=== PATIENT | female | born 1995 | race American Indian/Alaskan Native ===

== ENCOUNTER 2016-05-31 10:03 | Outpatient (CLI) | payer MEDICAID ==
[2016-05-31] MEDS ORDERED: LACTATED RINGERS 500 ML IV ONE (10:10)
[2016-05-31 10:33] VITALS: BP 107/56
[2016-05-31 11:34] LABS: Bacteria,Urine 4+ /HPF (Negative); Bilirubin,Urine NEG (Negative); Blood,Urine SM (Negative); Ketones,Urine TR mg/dL (Negative); Leukocyte Esterase,Urine LG (Negative); Mucus,Urine FEW /HPF; Nitrite,Urine POS (Negative)
[2016-05-31] MEDS ORDERED: ceFAZolin 2 GM in NACL 0.9% 100 ML IV ONE (11:44)
[2016-05-31] MEDS ORDERED: ZOFRAN IV ONE (11:45)
[2016-05-31] MEDS ORDERED: LACTATED RINGERS 1,000 ML IV SCH (12:00)
[2016-05-31 12:36] LABS: Hematocrit 27.7 % (30.3-42.9); Hemoglobin 9.2 gm/dl (10.1-14.3); Mean Corpuscular HGB Conc 33 % (30-34); Mean Corpuscular Volume 76 fl (79-97); Platelet Count 226 K/mm3 (140-440); Red Blood Count 3.62 M/mm3 (3.65-5.03); Red Cell Distribution Width 15.2 % (13.2-15.2)
[2016-05-31 12:42] LABS: Mean Corpuscular Hemoglobin 26 pg (28-32); White Blood Count 20.5 K/mm3 (4.5-11.0)
[2016-05-31 12:48] LABS: Anion Gap 20 mmol/L; BUN/Creatinine Ratio 8.57; Blood Urea Nitrogen 6 mg/dL (7-17); Calcium 8.5 mg/dL (8.4-10.2); Carbon Dioxide 19 mmol/L (22-30); Chloride 101.9 mmol/L (98-107); Glucose 82 mg/dL (65-100); Potassium 3.8 mmol/L (3.6-5.0); Sodium 137 mmol/L (137-145)
[2016-05-31 13:18] LABS: Basophils % (Manual) 0 % (0.0-1.8); Blastocytes % (Manual) 0 %; Eosinophils % (Manual) 0 % (0.0-4.3)
[2016-05-31 13:19] LABS: Hypochromasia Rare; Tear Drop Cells Few
[2016-05-31 13:20] LABS: Diff Status Complete
== END 2016-05-31 15:25 | disposition home or self-care (01) ==
LOC: TRG 10:03
PROVIDERS: ATTEND Obstetrics & Gynecology
DX: O77.9 Labor and delivery complicated by fetal stress, unspecified (principal); O47.03 False labor before 37 completed weeks of gestation, third trimester; Z3A.32 32 weeks gestation of pregnancy
CPT/HCPCS: 36415; 59025; 80048; 81001; 85007; 85025; 87086; 96360; 96361; 96365; J0690; J2405; J7120; 87076; 87186

== ENCOUNTER 2016-07-28 02:40 | Inpatient (IN) | payer MEDICAID ==
[2016-07-28] MEDS ORDERED: POLYCILLIN/NS 2 GM/100 ML 2 GM/100 ML BAG IV ONE (03:21)
[2016-07-28] MEDS: LACTATED RINGERS 1,000 ML IV SCH ×3 (03:49→10:26)
--- NOTE | 2016-07-28 03:54 | History and Physical Report ---
History of Present Illness Date of examination: 07/28/16 (pt presents to Triage with [facility]OM) Chief complaint: "my water broke" History of present illness: EDC Confirmation: 07/30/2016 Gestational Age: 8 weeks Past History : 2 Living Children: 0 Elect. Ab: 1 # 1 Delivery date: 04/27/2015 Delivery type: EAB Past Medical History: Negative Past Medical History Past Surgical History: negative Past Medical History Anesthesia Complications: negative Anemia: negative Autoimmune Disorder: negative Bleeding Disorder: negative Blood Transfusions: negative Breast Disease: negative Diabetes: negative Heart Disease: negative Hypertension: negative Hepatitis/Liver Disease: negative Kidney Disease/UTI: negative Neurologic/Epilepsy/Migraines: negative Phlebitis/Varicosities: negative Psychiatric: negative Pulmonary Disease/Asthma: negative Thyroid Disease: negative Hospitalizations: negative Surgery (Non-machine cell tuber): negative Infection History Hx of STD: none HIV Risk Eval: low risk Hepatitis B Risk Eval: low risk Personal hx. of genital herpes: no Partner hx. of genital herpes: no Varicella/Chicken Pox Status: Immunized TB Risk: no Genetic History Congenital Heart Defect: Mom: no Dad: no Sumeet Disease: Mom: no Dad: no Thalassemia Mom: no Dad: no Neural Tube Defect Mom: no Dad: no Down's Syndrome Mom: no Dad: no Pedro-Sachs Mom: no Dad: no Sickle Cell Disease/Trait Mom: no Dad: no Hemophilia Mom: no Dad: no Muscular Dystrophy Mom: no Dad: no Cystic Fibrosis Mom: no Dad: no [place] Chorea Mom: no Dad: no Mental Retardation Mom: no Dad: no Fragile X Mom: no Dad: no Other Genetic/Chromosomal Disorder Mom: no Dad: no Child w/other defect Mom: no Dad: no Enviromental Exposures Xray Exposure: no Medication, drug, or alcohol use since LMP: no Chemical/Other Exposure: no Exposure to Cat Liter: no Hx of Parvovirus (Fifth Disease): no Active Medications (reviewed today): None Current Allergies (reviewed today): No known allergies Laboratory Results Routine Urinalysis Leukocytes: negative Nitrite: negative Urobilinogen: negative Protein: negative Blood: negative Ketone: negative Bilirubin: negative Glucose: negative Urine HCG: positive Review of Systems General Denies fever, chills, sweats, anorexia, fatigue, weakness, malaise, weight loss and sleep disorder. Denies nausea, vomiting, headache, swelling of legs, abdominal pain, vaginal discharge, vaginal bleeding and contractions. Denies vaginal discharge, incontinence, dysuria, hematuria, urinary frequency, amenorrhea, menorrhagia, abnormal vaginal bleeding, pelvic pain, genital sores, decreased libido, painful periods, painful sex, urinary urgency, hot flashes, vaginal dryness, vaginal itching and vaginal odor. CV Denies chest pains, palpitations, syncope, dyspnea on exertion, orthopnea, PND and peripheral edema. Resp Denies cough, dyspnea at rest, excessive sputum, hemoptysis, wheezing and pleurisy. GI Denies nausea, vomiting, diarrhea, constipation, change in bowel habits, abdominal pain, melena, hematochezia, jaundice, gas/bloating, indigestion/ heartburn, dysphagia and odynophagia. Endo Denies cold intolerance, heat intolerance, polydipsia, polyphagia, polyuria and unusual weight change. Breast Denies left breast lump, right breast lump, nipple discharge, bloody discharge from nipple, breast pain, abnormal mammogram and breast enlargement. MS Denies back pain, joint pain, joint swelling, muscle cramps, muscle weakness, stiffness, arthritis, sciatica, restless legs, leg pain at night and leg pain with exertion. Derm Denies rash, itching, dryness and suspicious lesions. Neuro Denies paralysis, paresthesias, headache, seizures, tremors, vertigo, transient blindness, frequent falls, frequent headaches and difficulty walking. Psych Denies depression, anxiety, irritability and mood swings. Eyes Denies blurring, diplopia, irritation, discharge, vision loss, eye pain and photophobia. ENT Denies earache, ear discharge, tinnitus, decreased hearing, nasal congestion, nosebleeds, sore throat and hoarseness. Allergy Denies urticaria, allergic rash, hay fever and recurrent infections. Heme Denies abnormal bruising, bleeding and enlarged lymph nodes. PHYSICAL EXAM HEENT: PERRLA, normal conjunctiva, external nose and nasal mucosa normal, oropharynx clear Neck/Thyroid: supple, thyroid normal Skin no significant abnormal lesions or rashes Chest: respiratory effort normal, clear to auscultation Breasts: normal without skin changes or masses CV: regular, normal S1-S2, no murmur, no rub, no gallop Abdomen: normal bowel sounds, soft, nontender, no HSM Musculoskeletal: grossly normal ROM in joints, no joint tenderness or muscle weakness Neuro: grossly normal DTRs, sensation, strength, cranial nerves Extremities: no clubbing, cyanosis, or edema PRODUCTION CONTROL ANALYST Exams Vulva/Vagina: No lesions, normal BUS, normal rugae Cervix: No lesions; no cervical motion tenderness Uterus: normal size and position, midline, mobile, not 10 wk (dates), barely enlarged Adnexae: no masses or tenderness Rectovaginal: no masses or tenderness Past History - Obstetrical History Expected Date of Delivery: 07/30/16 Actual Gestation: 39 Week(s) 5 Day(s) : 2 Para: 0 Induced : 1 Number of Living Children: 0 Medications and Allergies Allergies Allergy/AdvReac Type Severity Reaction Status Date / Time No Known Allergies Allergy Verified 05/31/16 10:13 Home Medications Medication Instructions Recorded Confirmed Last Taken Type Caplet 1 tab PO DAILY 01/20/16 01/20/16 Unknown History Active Meds: Active Medications Ampicillin Sodium (Polycillin/Ns 2 Gm/100 Ml) 2 gm in 100 mls @ 100 mls/hr IV ONCE ONE PRN Reason: Protocol Stop: 07/28/16 04:20 Last Admin: 07/28/16 03:49 Dose: 100 mls/hr Lactated Ringer's (Lactated Ringers) 1,000 mls @ 125 mls/hr IV DIRECT MAYRA Last Admin: 07/28/16 03:49 Dose: 125 mls/hr - Vital Signs Vital signs: Vital Signs Pulse Pulse Ox 87 97 07/28/16 02:56 07/28/16 02:56 Temp Pulse Resp BP Pulse Ox 98.3 F 85 18 128/82 95 07/28/16 02:59 07/28/16 03:47 07/28/16 02:59 07/28/16 02:59 07/28/16 03:47 - Physical Exam Breasts: Positive: deferred Cardiovascular: Regular rate, Normal S1, Normal S2 Lungs: Positive: Normal air movement Abdomen: Positive: normal appearance, soft, normal bowel sounds. Negative: distention, tenderness Genitourinary (Female): Positive: normal external genitalia Vulva: both: normal Vagina: Positive: normal moisture. Negative: discharge Cervix: Negative: lesion, discharge Uterus: Positive: normal size, normal contour Adnexa: both: normal Anus/Rectum: Positive: normal perianal skin, heme negative. Negative: rectal mass, hemorrhoids Extremities: Positive: normal Deep Tendon Reflex Grade: Normal +2 - Obstetrical FHR: category 1 Uterine Contraction Monitor Mode: External Cervical Dilatation: 1.5 (per RN in Triage) Cervical Effacement Percentage: 40 station: -3 Uterine Contraction Pattern: Irregular Uterine Contraction Intensity: Mild Results All other labs normal. Laboratory Data-Patient Name: MAUREEN MCKNIGHT Test Date Result Blood Type 01/16/2016 B Rh 01/16/2016 Positive Antibody Screen negative Rubella 01/16/2016 IMMUNE Serology (RPR) 06/26/2016 NR HBsAg 01/16/2016 Negative Hemoglobin 04/16/2016 9.7 Hematocrit 04/16/2016 29.7 Platelets 01/16/2016 291 [id number] Chlamydia DNA 06/26/2016 Negative GC DNA/Culture 06/26/2016 Urine Culture 06/26/2016 Final report Group B Strep cult positive PAP HIV 06/26/2016 negative AFP/Quad Screen 02/13/2016 Glucola Test 3hr GTT (Fasting) 1 hr 2 hr 3 hr [facility]-Patient Name:MAUREEN MCKNIGHT Test Date Result Varicella Ab Sickle Cell 01/16/2016 Positive PPD Fibronectin Cystic Fibrosis Parvovirus TSH Free T4 Hepatitis C ALT AST Uric Acid Creatinine 24 hr Urine Protein KIM Assessment and Plan 21yo @ 39 weeks with SROM this AM 0200 per pt. GBS+ Orders in EMR - Patient Problems (1) Polyhydramnios in third trimester Onset Date: ~05/13/16 Current Visit: Yes Status: Acute Qualifiers: Fetus number: single or unspecified fetus Qualified Code(s): O40.3XX0 - Polyhydramnios, third trimester, not applicable or unspecified Plan to address problem: Last office US INDER 24 (2) Sickle cell trait Onset Date: Unknown Current Visit: Yes Status: Acute Plan to address problem: Pt has had UTI in Will send culture now Treat if indicated (3) Group B Streptococcus carrier state affecting Onset Date: ~06/26/16 Current Visit: Yes Status: Acute Plan to address problem: Ampicillin ordered per protocol. (4) Spontaneous rupture of membranes Onset Date: ~07/28/16 Current Visit: Yes Status: Acute Plan to address problem: SROM today @ 0200 Will start pitocin per protocol @ 0600 to allow treatment for +GBS
[2016-07-28] MEDS ORDERED: XYLOCAINE 2% INFILTRATI ONE (03:55)
[2016-07-28] MEDS ORDERED: BRETHINE SUB-Q PRN (03:55)
[2016-07-28] MEDS ORDERED: ZOFRAN IV PRN ×2 (03:55→18:11)
[2016-07-28] MEDS ORDERED: ePHEDrine SULFATE IV PRN ×2 (03:55→10:30)
[2016-07-28] MEDS ORDERED: SUBLIMAZE IV PRN (03:55)
[2016-07-28] MEDS ORDERED: MINERAL OIL PO PRN (03:55)
[2016-07-28] MEDS ORDERED: LACTATED RINGERS 1,000 ML IV SCH (04:00)
[2016-07-28] MEDS ORDERED: PITOCin 20 UNIT in NACL 0.9% 1000 ML 998 ML IV SCH (04:00)
[2016-07-28 04:08] LABS: Hematocrit 26.6 % (30.3-42.9); Hemoglobin 8.9 gm/dl (10.1-14.3); Mean Corpuscular HGB Conc 34 % (30-34); Mean Corpuscular Volume 74 fl (79-97); Red Blood Count 3.61 M/mm3 (3.65-5.03); Red Cell Distribution Width 16.9 % (13.2-15.2); White Blood Count 11.6 K/mm3 (4.5-11.0)
[2016-07-28 04:11] LABS: Mean Corpuscular Hemoglobin 25 pg (28-32)
[2016-07-28 04:17] LABS: Platelet Count 231 K/mm3 (140-440)
[2016-07-28] MEDS: PITOCin 30 UNIT in NACL 0.9% 500 ML 497 ML IV SCH ×2 (06:32→10:03)
[2016-07-28] MEDS: POLYCILLIN/NS 1 GM/50 ML 1 GM/50 ML BAG IV SCH ×2 (08:01→13:27)
--- NOTE | 2016-07-28 08:13 | Progress Note ---
Assessment and Plan Bolusing for epidural Ampicillin second dose infused SVE 6,100,-2. Internal monitors placed. Fluid continues clear. Pit @ 4mu Re-eval as needed Anticipate delivery - Patient Problems (1) Polyhydramnios in third trimester Onset Date: ~05/13/16 Current Visit: Yes Status: Acute Qualifiers: Fetus number: single or unspecified fetus Qualified Code(s): O40.3XX0 - Polyhydramnios, third trimester, not applicable or unspecified (2) Sickle cell trait Onset Date: Unknown Current Visit: Yes Status: Acute (3) Group B Streptococcus carrier state affecting Onset Date: ~06/26/16 Current Visit: Yes Status: Acute (4) Spontaneous rupture of membranes Onset Date: ~07/28/16 Current Visit: Yes Status: Acute Subjective - Subjective Date of service: 07/28/16 (bolusing for epidural) Interval history: EDC Confirmation: 07/30/2016 Gestational Age: 8 weeks Past History : 2 Living Children: 0 Elect. Ab: 1 # 1 Delivery date: 04/27/2015 Delivery type: EAB Past Medical History: Negative Past Medical History Past Surgical History: negative Past Medical History Anesthesia Complications: negative Anemia: negative Autoimmune Disorder: negative Bleeding Disorder: negative Blood Transfusions: negative Breast Disease: negative Diabetes: negative Heart Disease: negative Hypertension: negative Hepatitis/Liver Disease: negative Kidney Disease/UTI: negative Neurologic/Epilepsy/Migraines: negative Phlebitis/Varicosities: negative Psychiatric: negative Pulmonary Disease/Asthma: negative Thyroid Disease: negative Hospitalizations: negative Surgery (Non-wood cutter): negative Infection History Hx of STD: none HIV Risk Eval: low risk Hepatitis B Risk Eval: low risk Personal hx. of genital herpes: no Partner hx. of genital herpes: no Varicella/Chicken Pox Status: Immunized TB Risk: no Genetic History Congenital Heart Defect: Mom: no Dad: no Sumeet Disease: Mom: no Dad: no Thalassemia Mom: no Dad: no Neural Tube Defect Mom: no Dad: no Down's Syndrome Mom: no Dad: no Pedro-Sachs Mom: no Dad: no Sickle Cell Disease/Trait Mom: no Dad: no Hemophilia Mom: no Dad: no Muscular Dystrophy Mom: no Dad: no Cystic Fibrosis Mom: no Dad: no [place] Chorea Mom: no Dad: no Mental Retardation Mom: no Dad: no Fragile X Mom: no Dad: no Other Genetic/Chromosomal Disorder Mom: no Dad: no Child w/other defect Mom: no Dad: no Enviromental Exposures Xray Exposure: no Medication, drug, or alcohol use since LMP: no Chemical/Other Exposure: no Exposure to Cat Liter: no Hx of Parvovirus (Fifth Disease): no Active Medications (reviewed today): None Current Allergies (reviewed today): No known allergies Laboratory Results Routine Urinalysis Leukocytes: negative Nitrite: negative Urobilinogen: negative Protein: negative Blood: negative Ketone: negative Bilirubin: negative Glucose: negative Urine HCG: positive Review of Systems General Denies fever, chills, sweats, anorexia, fatigue, weakness, malaise, weight loss and sleep disorder. Denies nausea, vomiting, headache, swelling of legs, abdominal pain, vaginal discharge, vaginal bleeding and contractions. Denies vaginal discharge, incontinence, dysuria, hematuria, urinary frequency, amenorrhea, menorrhagia, abnormal vaginal bleeding, pelvic pain, genital sores, decreased libido, painful periods, painful sex, urinary urgency, hot flashes, vaginal dryness, vaginal itching and vaginal odor. CV Denies chest pains, palpitations, syncope, dyspnea on exertion, orthopnea, PND and peripheral edema. Resp Denies cough, dyspnea at rest, excessive sputum, hemoptysis, wheezing and pleurisy. GI Denies nausea, vomiting, diarrhea, constipation, change in bowel habits, abdominal pain, melena, hematochezia, jaundice, gas/bloating, indigestion/ heartburn, dysphagia and odynophagia. Endo Denies cold intolerance, heat intolerance, polydipsia, polyphagia, polyuria and unusual weight change. Breast Denies left breast lump, right breast lump, nipple discharge, bloody discharge from nipple, breast pain, abnormal mammogram and breast enlargement. MS Denies back pain, joint pain, joint swelling, muscle cramps, muscle weakness, stiffness, arthritis, sciatica, restless legs, leg pain at night and leg pain with exertion. Derm Denies rash, itching, dryness and suspicious lesions. Neuro Denies paralysis, paresthesias, headache, seizures, tremors, vertigo, transient blindness, frequent falls, frequent headaches and difficulty walking. Psych Denies depression, anxiety, irritability and mood swings. Eyes Denies blurring, diplopia, irritation, discharge, vision loss, eye pain and photophobia. ENT Denies earache, ear discharge, tinnitus, decreased hearing, nasal congestion, nosebleeds, sore throat and hoarseness. Allergy Denies urticaria, allergic rash, hay fever and recurrent infections. Heme Denies abnormal bruising, bleeding and enlarged lymph nodes. PHYSICAL EXAM HEENT: PERRLA, normal conjunctiva, external nose and nasal mucosa normal, oropharynx clear Neck/Thyroid: supple, thyroid normal Skin no significant abnormal lesions or rashes Chest: respiratory effort normal, clear to auscultation Breasts: normal without skin changes or masses CV: regular, normal S1-S2, no murmur, no rub, no gallop Abdomen: normal bowel sounds, soft, nontender, no HSM Musculoskeletal: grossly normal ROM in joints, no joint tenderness or muscle weakness Neuro: grossly normal DTRs, sensation, strength, cranial nerves Extremities: no clubbing, cyanosis, or edema CADD OPERATOR Exams Vulva/Vagina: No lesions, normal BUS, normal rugae Cervix: No lesions; no cervical motion tenderness Uterus: normal size and position, midline, mobile, not 10 wk (dates), barely enlarged Adnexae: no masses or tenderness Rectovaginal: no masses or tenderness Patient reports: movement normal Objective - Vital Signs Vital Signs: Vital Signs - 12hr 07/28/16 07/28/16 07/28/16 02:56 02:57 02:59 Temperature 98.3 F Pulse Rate 87 77 Pulse Rate [ 77 From Monitor] Respiratory 18 Rate Blood Pressure 128/82 Blood Pressure 128/82 [Left Arm] O2 Sat by Pulse 97 Oximetry 07/28/16 07/28/16 07/28/16 03:01 03:07 03:12 Temperature Pulse Rate 81 82 83 Pulse Rate [ From Monitor] Respiratory Rate Blood Pressure Blood Pressure [Left Arm] O2 Sat by Pulse 98 99 99 Oximetry 07/28/16 07/28/16 07/28/16 03:17 03:19 03:20 Temperature Pulse Rate 92 H 79 76 Pulse Rate [ From Monitor] Respiratory Rate Blood Pressure Blood Pressure [Left Arm] O2 Sat by Pulse 98 99 91 Oximetry 07/28/16 07/28/16 07/28/16 03:21 03:23 03:28 Temperature Pulse Rate 83 94 H 97 H Pulse Rate [ From Monitor] Respiratory Rate Blood Pressure Blood Pressure [Left Arm] O2 Sat by Pulse 99 98 99 Oximetry 07/28/16 07/28/16 07/28/16 03:33 03:38 03:43 Temperature Pulse Rate 86 82 78 Pulse Rate [ From Monitor] Respiratory Rate Blood Pressure Blood Pressure [Left Arm] O2 Sat by Pulse 99 98 98 Oximetry 07/28/16 07/28/16 07/28/16 03:47 03:51 03:52 Temperature Pulse Rate 85 90 88 Pulse Rate [ From Monitor] Respiratory Rate Blood Pressure Blood Pressure [Left Arm] O2 Sat by Pulse 95 90 96 Oximetry 07/28/16 07/28/16 07/28/16 03:57 04:51 04:56 Temperature 97.9 F Pulse Rate 86 78 Pulse Rate [ From Monitor] Respiratory 18 Rate Blood Pressure 119/80 Blood Pressure [Left Arm] O2 Sat by Pulse 97 Oximetry - Exam Breasts: deferred Cardiovascular: Regular rate Lungs: Normal air movement Abdomen: Present: normal appearance, soft. Absent: distention, tenderness Vulva: both: normal Uterus: Present: normal FHR: auscultation normal, category 1 Uterine Contraction Monitor Mode: Internal Cervical Dilatation: 6 (ISE/IUPC placed) Cervical Effacement Percentage: 100 station: -2 Uterine Contraction Pattern: Regular Uterine Contraction Intensity: Moderate Extremities: normal Deep Tendon Reflex Grade: Normal +2 - Labs Labs: Abnormal Labs 07/28/16 03:50 WBC 11.6 H RBC 3.61 L Hgb 8.9 L Hct 26.6 L MCV 74 L MCH 25 L RDW 16.9 H Laboratory Results - last 24 hr 07/28/16 07/28/16 03:50 03:50 WBC 11.6 H RBC 3.61 L Hgb 8.9 L Hct 26.6 L MCV 74 L MCH 25 L MCHC 34 RDW 16.9 H Plt Count 231 Blood Type B POSITIVE Antibody Screen Negative
[2016-07-28] MEDS ORDERED: ePHEDrine SULFATE ONE (09:15)
--- NOTE | 2016-07-28 10:01 | Progress Note ---
Assessment and Plan Comfortable with epidural SVE 6,90,-2 IUPC replaced given report. - Patient Problems (1) Polyhydramnios in third trimester Onset Date: ~05/13/16 Current Visit: Yes Status: Acute Qualifiers: Fetus number: single or unspecified fetus Qualified Code(s): O40.3XX0 - Polyhydramnios, third trimester, not applicable or unspecified (2) Sickle cell trait Onset Date: Unknown Current Visit: Yes Status: Acute (3) Group B Streptococcus carrier state affecting Onset Date: ~06/26/16 Current Visit: Yes Status: Acute (4) Spontaneous rupture of membranes Onset Date: ~07/28/16 Current Visit: Yes Status: Acute Subjective - Subjective Date of service: 07/28/16 (comfortable with epidural) Interval history: EDC Confirmation: 07/30/2016 Gestational Age: 8 weeks Past History : 2 Living Children: 0 Elect. Ab: 1 # 1 Delivery date: 04/27/2015 Delivery type: EAB Past Medical History: Negative Past Medical History Past Surgical History: negative Past Medical History Anesthesia Complications: negative Anemia: negative Autoimmune Disorder: negative Bleeding Disorder: negative Blood Transfusions: negative Breast Disease: negative Diabetes: negative Heart Disease: negative Hypertension: negative Hepatitis/Liver Disease: negative Kidney Disease/UTI: negative Neurologic/Epilepsy/Migraines: negative Phlebitis/Varicosities: negative Psychiatric: negative Pulmonary Disease/Asthma: negative Thyroid Disease: negative Hospitalizations: negative 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 of genital herpes: no Partner hx. of genital herpes: no Varicella/Chicken Pox Status: Immunized TB Risk: no Genetic History Congenital Heart Defect: Mom: no Dad: no Sumeet Disease: Mom: no Dad: no Thalassemia Mom: no Dad: no Neural Tube Defect Mom: no Dad: no Down's Syndrome Mom: no Dad: no Pedro-Sachs Mom: no Dad: no Sickle Cell Disease/Trait Mom: no Dad: no Hemophilia Mom: no Dad: no Muscular Dystrophy Mom: no Dad: no Cystic Fibrosis Mom: no Dad: no Philipp Chorea Mom: no Dad: no Mental Retardation Mom: no Dad: no Fragile X Mom: no Dad: no Other Genetic/Chromosomal Disorder Mom: no Dad: no Child w/other defect Mom: no Dad: no Enviromental Exposures Xray Exposure: no Medication, drug, or alcohol use since LMP: no Chemical/Other Exposure: no Exposure to Cat Liter: no Hx of Parvovirus (Fifth Disease): no Active Medications (reviewed today): None Current Allergies (reviewed today): No known allergies Laboratory Results Routine Urinalysis Leukocytes: negative Nitrite: negative Urobilinogen: negative Protein: negative Blood: negative Ketone: negative Bilirubin: negative Glucose: negative Urine HCG: positive Review of Systems General Denies fever, chills, sweats, anorexia, fatigue, weakness, malaise, weight loss and sleep disorder. Denies nausea, vomiting, headache, swelling of legs, abdominal pain, vaginal discharge, vaginal bleeding and contractions. Denies vaginal discharge, incontinence, dysuria, hematuria, urinary frequency, amenorrhea, menorrhagia, abnormal vaginal bleeding, pelvic pain, genital sores, decreased libido, painful periods, painful sex, urinary urgency, hot flashes, vaginal dryness, vaginal itching and vaginal odor. CV Denies chest pains, palpitations, syncope, dyspnea on exertion, orthopnea, PND and peripheral edema. Resp Denies cough, dyspnea at rest, excessive sputum, hemoptysis, wheezing and pleurisy. GI Denies nausea, vomiting, diarrhea, constipation, change in bowel habits, abdominal pain, melena, hematochezia, jaundice, gas/bloating, indigestion/ heartburn, dysphagia and odynophagia. Endo Denies cold intolerance, heat intolerance, polydipsia, polyphagia, polyuria and unusual weight change. Breast Denies left breast lump, right breast lump, nipple discharge, bloody discharge from nipple, breast pain, abnormal mammogram and breast enlargement. MS Denies back pain, joint pain, joint swelling, muscle cramps, muscle weakness, stiffness, arthritis, sciatica, restless legs, leg pain at night and leg pain with exertion. Derm Denies rash, itching, dryness and suspicious lesions. Neuro Denies paralysis, paresthesias, headache, seizures, tremors, vertigo, transient blindness, frequent falls, frequent headaches and difficulty walking. Psych Denies depression, anxiety, irritability and mood swings. Eyes Denies blurring, diplopia, irritation, discharge, vision loss, eye pain and photophobia. ENT Denies earache, ear discharge, tinnitus, decreased hearing, nasal congestion, nosebleeds, sore throat and hoarseness. Allergy Denies urticaria, allergic rash, hay fever and recurrent infections. Heme Denies abnormal bruising, bleeding and enlarged lymph nodes. PHYSICAL EXAM HEENT: PERRLA, normal conjunctiva, external nose and nasal mucosa normal, oropharynx clear Neck/Thyroid: supple, thyroid normal Skin no significant abnormal lesions or rashes Chest: respiratory effort normal, clear to auscultation Breasts: normal without skin changes or masses CV: regular, normal S1-S2, no murmur, no rub, no gallop Abdomen: normal bowel sounds, soft, nontender, no HSM Musculoskeletal: grossly normal ROM in joints, no joint tenderness or muscle weakness Neuro: grossly normal DTRs, sensation, strength, cranial nerves Extremities: no clubbing, cyanosis, or edema REHABILITATION PROGRAM COORDINATOR Exams Vulva/Vagina: No lesions, normal BUS, normal rugae Cervix: No lesions; no cervical motion tenderness Uterus: normal size and position, midline, mobile, not 10 wk (dates), barely enlarged Adnexae: no masses or tenderness Rectovaginal: no masses or tenderness Patient reports: movement normal Objective - Vital Signs Vital Signs: Vital Signs - 12hr 07/28/16 07/28/16 07/28/16 02:56 02:57 02:59 Temperature 98.3 F Pulse Rate 87 77 Pulse Rate [ 77 From Monitor] Respiratory 18 Rate Blood Pressure 128/82 Blood Pressure 128/82 [Left Arm] O2 Sat by Pulse 97 Oximetry 07/28/16 07/28/16 07/28/16 03:01 03:07 03:12 Temperature Pulse Rate 81 82 83 Pulse Rate [ From Monitor] Respiratory Rate Blood Pressure Blood Pressure [Left Arm] O2 Sat by Pulse 98 99 99 Oximetry 07/28/16 07/28/16 07/28/16 03:17 03:19 03:20 Temperature Pulse Rate 92 H 79 76 Pulse Rate [ From Monitor] Respiratory Rate Blood Pressure Blood Pressure [Left Arm] O2 Sat by Pulse 98 99 91 Oximetry 07/28/16 07/28/16 07/28/16 03:21 03:23 03:28 Temperature Pulse Rate 83 94 H 97 H Pulse Rate [ From Monitor] Respiratory Rate Blood Pressure Blood Pressure [Left Arm] O2 Sat by Pulse 99 98 99 Oximetry 07/28/16 07/28/16 07/28/16 03:33 03:38 03:43 Temperature Pulse Rate 86 82 78 Pulse Rate [ From Monitor] Respiratory Rate Blood Pressure Blood Pressure [Left Arm] O2 Sat by Pulse 99 98 98 Oximetry 07/28/16 07/28/16 07/28/16 03:47 03:51 03:52 Temperature Pulse Rate 85 90 88 Pulse Rate [ From Monitor] Respiratory Rate Blood Pressure Blood Pressure [Left Arm] O2 Sat by Pulse 95 90 96 Oximetry 07/28/16 07/28/16 07/28/16 03:57 04:51 04:56 Temperature 97.9 F Pulse Rate 86 78 Pulse Rate [ From Monitor] Respiratory 18 Rate Blood Pressure 119/80 Blood Pressure [Left Arm] O2 Sat by Pulse 97 Oximetry 07/28/16 07/28/16 07/28/16 09:30 09:35 09:40 Temperature Pulse Rate 124 H 106 H 88 Pulse Rate [ From Monitor] Respiratory Rate Blood Pressure Blood Pressure [Left Arm] O2 Sat by Pulse 99 99 100 Oximetry 07/28/16 07/28/16 07/28/16 09:45 09:50 09:55 Temperature Pulse Rate 97 H 95 H 75 Pulse Rate [ From Monitor] Respiratory Rate Blood Pressure Blood Pressure [Left Arm] O2 Sat by Pulse 100 100 100 Oximetry - Exam Breasts: deferred Cardiovascular: Regular rate Lungs: Normal air movement Abdomen: Present: normal appearance, soft. Absent: distention, tenderness Uterus: Present: normal FHR: auscultation normal, category 1 Uterine Contraction Monitor Mode: Internal Cervical Dilatation: 6 Cervical Effacement Percentage: 90 station: -2 Uterine Contraction Pattern: Regular Uterine Contraction Intensity: Moderate Extremities: normal Deep Tendon Reflex Grade: Normal +2 - Labs Labs: Abnormal Labs 07/28/16 03:50 WBC 11.6 H RBC 3.61 L Hgb 8.9 L Hct 26.6 L MCV 74 L MCH 25 L RDW 16.9 H Laboratory Results - last 24 hr 07/28/16 07/28/16 03:50 03:50 WBC 11.6 H RBC 3.61 L Hgb 8.9 L Hct 26.6 L MCV 74 L MCH 25 L MCHC 34 RDW 16.9 H Plt Count 231 Blood Type B POSITIVE Antibody Screen Negative
[2016-07-28] MEDS ORDERED: NARCAN 2 MG/2 ML IV PRN (10:06)
--- NOTE | 2016-07-28 10:06 | Anesthesia Consultation ---
Anesthesia Consult and Med Hx Date of service: 07/28/16 - Airway Anesthetic Teeth Evaluation: Good ROM Head & Neck: Adequate Mental/Hyoid Distance: Adequate Mallampati Class: Class II Intubation Access Assessment: Good - Pulmonary Exam CTA: Yes - Cardiac Exam Cardiac Exam: No Murmur - Pre-Operative Health Status ASA Pre-Surgery Classification: ASA2 Proposed Anesthetic Plan: Epidural - Pulmonary Hx Asthma: No COPD: No Hx Pneumonia: No - Cardiovascular System Hx Hypertension: No - Central Nervous System Hx Seizures: No Hx Psychiatric Problems: No - Endocrine Hx Renal Disease: No Hx End Stage Renal Disease: No Hx Hypothyroidism: No Hx Hyperthyroidism: No - Hematic Hx Anemia: No Hx Sickle Cell Disease: No - Other Systems Hx Alcohol Use: No
[2016-07-28] MEDS ORDERED: fentaNYL-BUPIV 2 MCG/ML-0.125% 200 MCG/100 ML BAG EPIDURAL SCH (11:00)
[2016-07-28] MEDS ORDERED: PITOCin/NS 20 UNIT/1000ML DRIP 20,000 MILLIUNITS/1,000 ML BAG IV ONE (14:00)
--- NOTE | 2016-07-28 15:47 | Procedure Note ---
OB Delivery Note - Delivery Date of Delivery: 07/28/16 Surgeon: MANSOOR SPICER Estimated blood loss: other (400cc) - Vaginal Delivery presentation: vertex Delivery position: OA Intrapartum events: mult.variable deceleratio Delivery augmentation: pitocin Delivery monitor: external FHT, external uterine Route of delivery: vacuum extraction Indicators for instrumentation: nonreassuring FHR tracing Delivery placenta: spontaneous Episiotomy: none Delivery laceration: 1st degree, other (Vulva bilateral) Delivery repair: vicryl Anesthesia: epidural Delivery comments: Multiple decels present and maternal exhaustion were indicators for vacuum delivery. One pull w/o pop-offs NICU present - Infant A at 1 minute: 9 at 5 minutes: 9 Gender: Female
[2016-07-28] MEDS ORDERED: PHENERGAN PO PRN (18:11)
[2016-07-28] MEDS ORDERED: DERMOPLAST TP PRN (18:11)
[2016-07-28] MEDS ORDERED: SODIUM CHLORIDE FLUSH SYRINGE 10 ML IV NR (18:11)
[2016-07-28] MEDS ORDERED: NORCO 5/325 PO PRN (18:11)
[2016-07-28] MEDS ORDERED: TUCKS PAD TP PRN (18:11)
[2016-07-28] MEDS ORDERED: MILK OF MAGNESIA PO PRN (18:11)
[2016-07-28] MEDS ORDERED: DULCOLAX PR PRN (18:11)
[2016-07-28] MEDS ORDERED: LANSINOH TP PRN (18:11)
[2016-07-28] MEDS ORDERED: BENADRYL PO PRN (18:11)
[2016-07-28] MEDS ORDERED: TYLENOL PO PRN (18:11)
[2016-07-28] MEDS: COLACE PO SCH (22:22)
[2016-07-28] MEDS: MOTRIN PO SCH (23:37)
[2016-07-29 04:21] LABS: Hemoglobin 8.9 gm/dl (10.1-14.3)
[2016-07-29] MEDS: MOTRIN PO SCH ×2 (05:42→12:09)
--- NOTE | 2016-07-29 07:55 | Progress Note ---
Assessment and Plan Patient doing well w/o complaints this morning. DENAE Head, post del H &H stable @ 8.9/28 (H&H 8.9/26.6 upon admission, preexisting anemia, denies feeling weak or light headed during ambulation.) Patient desires d/c home today if baby is discharged. plan for f/u 4 weeks in office for visit. - Patient Problems (1) Anemia Current Visit: Yes Status: Acute Qualifiers: Anemia type: iron deficiency Iron deficiency anemia type: inadequate dietary iron intake Vitamin B12 deficiency anemia type: V Folate deficiency anemia type: F Bone marrow failure anemia type: B Hemolytic anemia type: H Other causes of anemia: O Qualified Code(s): D50.8 - Other iron deficiency anemias Plan to address problem: rx PO iron for d/c home (2) Group B Streptococcus carrier state affecting Onset Date: ~06/26/16 Current Visit: Yes Status: Acute (3) Vacuum extractor delivery, delivered Current Visit: Yes Status: Acute Subjective - Subjective Date of service: 07/29/16 Principal diagnosis: day #1 s/p vaginal delivery Patient reports: appetite normal, voiding normally, pain well controlled, ambulating normally, no dizzy ambulation, no nauseated : doing well, bottle feeding Objective - Vital Signs Latest vital signs: Vital Signs Temp Pulse Pulse Resp BP BP Pulse Ox 07/29/16 04:30 98.6 F 78 16 120/70 07/29/16 00:00 98.6 F 88 22 114/72 07/28/16 19:30 98.6 F 86 22 140/66 07/28/16 17:16 98.9 F 92 H 20 100/70 07/28/16 16:20 99 F 07/28/16 16:17 104 H 123/75 07/28/16 16:02 114 H 117/66 07/28/16 15:47 148 H 154/71 07/28/16 15:32 153 H 109/53 07/28/16 15:27 105 H 100 07/28/16 15:22 116 H 100 07/28/16 15:21 117 H 96/53 07/28/16 15:17 113 H 93 07/28/16 15:12 111 H 78 L 07/28/16 15:11 104 H 81 L 07/28/16 15:07 110 H 100 07/28/16 15:06 106 H 89 07/28/16 15:02 110 H 98 07/28/16 14:56 119 H 100 07/28/16 14:51 113 H 91 07/28/16 14:48 78 73 L 07/28/16 14:46 120 H 99 07/28/16 14:42 106 H 94 07/28/16 14:41 115 H 98 07/28/16 14:36 113 H 98 07/28/16 14:33 108 H 103/57 07/28/16 14:31 113 H 100 07/28/16 14:26 98 H 100 07/28/16 14:21 108 H 100 07/28/16 14:15 123 H 100 07/28/16 14:10 100 H 98 07/28/16 14:05 99 H 100 07/28/16 14:00 98.8 F 99 H 100 07/28/16 13:55 107 H 98 07/28/16 13:50 119 H 99 07/28/16 13:47 96 H 116/58 07/28/16 13:45 89 100 07/28/16 13:40 107 H 98 07/28/16 13:35 95 H 100 07/28/16 13:32 108/60 07/28/16 13:30 104 H 100 07/28/16 13:25 91 H 100 07/28/16 13:20 95 H 100 07/28/16 13:18 100 H 110/62 07/28/16 13:15 90 100 07/28/16 13:10 102 H 100 07/28/16 13:05 97 H 100 07/28/16 13:01 75 101/57 07/28/16 13:00 98.4 F 80 100 07/28/16 12:55 87 100 07/28/16 12:50 70 100 07/28/16 12:47 68 98/57 07/28/16 12:45 72 100 07/28/16 12:40 88 99 07/28/16 12:35 75 100 07/28/16 12:32 74 109/58 07/28/16 12:30 72 100 07/28/16 12:25 75 98/52 100 07/28/16 12:20 91 H 99 07/28/16 12:15 89 99 07/28/16 12:10 98 H 100 07/28/16 12:09 100 H 120/65 07/28/16 12:05 83 100 07/28/16 12:00 89 100 07/28/16 11:55 81 99 07/28/16 11:50 73 100 07/28/16 11:48 73 115/69 07/28/16 11:46 86 93 07/28/16 11:45 82 85 07/28/16 11:41 77 94 07/28/16 11:40 82 98 07/28/16 11:35 73 99 07/28/16 11:33 66 109/62 07/28/16 11:30 71 100 07/28/16 11:28 70 108/58 07/28/16 11:25 66 100 07/28/16 11:20 71 100 07/28/16 11:17 79 109/65 07/28/16 11:15 88 100 07/28/16 11:12 76 101/56 07/28/16 11:10 79 100 07/28/16 11:08 73 106/58 07/28/16 11:05 73 100 07/28/16 11:02 64 107/57 07/28/16 11:00 98 F 70 100 07/28/16 10:59 70 101/55 07/28/16 10:55 70 100 07/28/16 10:53 65 109/57 07/28/16 10:50 70 90 07/28/16 10:47 65 106/55 07/28/16 10:45 64 99 07/28/16 10:44 71 93 07/28/16 10:42 71 102/58 07/28/16 10:40 75 100 07/28/16 10:38 75 108/59 93 07/28/16 10:35 67 100 07/28/16 10:33 65 104/59 07/28/16 10:30 64 99 07/28/16 10:27 61 93/53 07/28/16 10:25 71 99 07/28/16 10:23 66 101/58 07/28/16 10:20 71 99 07/28/16 10:18 73 109/58 07/28/16 10:15 84 100 07/28/16 10:13 78 107/58 07/28/16 10:10 69 100 07/28/16 10:07 70 100/54 07/28/16 10:05 80 99 07/28/16 10:03 69 96/54 07/28/16 10:00 77 100 07/28/16 09:55 75 100 07/28/16 09:50 95 H 100 07/28/16 09:45 97 H 100 07/28/16 09:40 88 100 07/28/16 09:35 106 H 99 07/28/16 09:30 124 H 99 Intake and Output 07/28/16 07/29/16 07/29/16 22:59 06:59 14:59 Intake Total 120 1300 Output Total 1900 Balance -1780 1300 Intake: Oral 120 700 Intake, Free Water 600 Output: Urine 1600 Indwelling Catheter 800 Void 800 Urine/Stool Mix 300 Other: Total, Intake Amount 120 300 Total, Output Amount 800 # Voids Indwelling Catheter 1 Void 800 Estimated Blood Loss 400 - Exam Breasts: Present: normal Cardiovascular: Present: Regular rate Lungs: Present: Clear to auscultation, Normal air movement Abdomen: Present: normal appearance, soft, normal bowel sounds Vulva: both: laceration/episiotomy Uterus: Present: normal, firm, fundal height at umbilicus Extremities: Present: normal Incision: Present: normal, dry, intact - Labs Labs: Abnormal lab results 07/29/16 Range/Units 03:14 Hgb 8.9 L (10.1-14.3) gm/dl Hct 28.0 L (30.3-42.9) %
--- NOTE | 2016-07-29 08:00 | Discharge Summary ---
Providers - Providers Date of Admission: 07/28/16 03:51 Date of discharge: 07/29/16 (desires d/c home) Attending physician: MANSOOR SPICER 07/28/16 18:11 Consult to Clock Smith [CONS] Routine Reason For Exam: assistance with , SNS Primary care physician: MANSOOR SPICER Hospitalization Reason for admission: rupture of membranes Delivery: vacuum extraction Episiotomy: none Laceration: 1st degree Incision: normal, dry, intact Other procedures: none complications: none Discharge diagnosis: IUP at term delivered baby: female Hospital course: uncomplicated vaginal with vacuum assist Condition at discharge: Good Disposition: DISCHARGED TO HOME OR SELFCARE - Discharge Diagnoses (1) Anemia Status: Acute Qualifiers: Anemia type: iron deficiency Iron deficiency anemia type: inadequate dietary iron intake Vitamin B12 deficiency anemia type: V Folate deficiency anemia type: F Bone marrow failure anemia type: B Hemolytic anemia type: H Other causes of anemia: O Qualified Code(s): D50.8 - Other iron deficiency anemias (2) Group B Streptococcus carrier state affecting Status: Acute (3) Vacuum extractor delivery, delivered Status: Acute Plan - Discharge Medications Prescriptions: Ferrous Sulfate [Feosol 325 MG tab] 325 mg PO BID #90 tablet Ibuprofen [Motrin 800 MG tab] 800 mg PO Q8HR PRN #30 tablet PRN Reason: Pain - Provider Discharge Summary Activity: routine, no sex for 6 weeks, no heavy lifting 4 weeks, no strenuous exercise Diet: routine Instructions: routine Additional instructions: [] Smoking cessation referral if applicable(refer to patient education folder for contact #) [] Refer to [facility]'s [facility] Booklet Call your doctor immediately for: * Fever > 100.5 * Heavy vaginal bleeding ( >1 pad per hour) * Severe persistent headache * Shortness of breath * Reddened, hot, painful area to leg or breast * Drainage or odor from incision. * Keep incision clean and dry at all times and follow doctor's instructions regarding bathing/showering - Follow up plan Follow up: MANSOOR SPICER MD [Primary Care Provider] - 08/26/16 (Congratulations! Please call [phone] to schedule your visit in 4 weeks. Call for any questions or concerns. )
[2016-07-29] MEDS ORDERED: PRENATAL VITAMIN PO SCH (10:00)
[2016-07-29] MEDS: COLACE PO SCH (10:31)
--- NOTE | 2016-07-29 10:58 | Progress Note ---
Subjective Date of service: 07/29/16 Principal diagnosis: day #1 s/p vaginal delivery Interval history: 1st day after normal vaginal delivery Patient is in the bed, comfortable. Pain is well under control. No nausea or vomiting. Ambulated well. No residual neurological deficit. No anesthesia complications Objective - Constitutional Vitals: Vital Signs - 12hr 07/29/16 07/29/16 07/29/16 00:00 04:30 07:58 Temperature 98.6 F 98.6 F 97.8 F Pulse Rate [ 88 78 76 Left Radial] Respiratory 22 16 18 Rate Blood Pressure 114/72 120/70 [Left Arm] Blood Pressure 98/64 [Right Arm] - Labs CBC & Chem 7: 07/29/16 03:14 Labs: Abnormal lab results 07/29/16 Range/Units 03:14 Hgb 8.9 L (10.1-14.3) gm/dl Hct 28.0 L (30.3-42.9) %
[2016-07-29] MEDS ORDERED: BOOSTRIX IM ONE ×2 (11:00→16:15)
[2016-07-29 16:45] VITALS: BP 118/80
== END 2016-07-29 17:45 | disposition home or self-care (01) | DRG 775 ==
LOC: TRG 02:40 → LD 03:51 → OB 17:32
PROVIDERS: ADMIT Obstetrics & Gynecology; ATTEND Obstetrics & Gynecology
PROC: 0UQMXZZ Repair Vulva, External Approach (ICD-10-PCS; principal; 2016-07-28)
PROC: 10D07Z6 Extraction of Products of Conception, Vacuum, Via Natural or Artificial Opening (ICD-10-PCS; 2016-07-28)
PROC: 3E0S3CZ (ICD-10-PCS; 2016-07-28)
PROC: 10H07YZ Insertion of Other Device into Products of Conception, Via Natural or Artificial Opening (ICD-10-PCS; 2016-07-28)
PROC: 00HU33Z Insertion of Infusion Device into Spinal Canal, Percutaneous Approach (ICD-10-PCS; 2016-07-28)
PROC: 3E0234Z Introduction of Serum, Toxoid and Vaccine into Muscle, Percutaneous Approach (ICD-10-PCS; 2016-07-29)
DX: O42.02 Full-term premature rupture of membranes, onset of labor within 24 hours of rupture (principal); O40.3XX0 Polyhydramnios, third trimester, not applicable or unspecified; O99.02 Anemia complicating childbirth; D57.3 Sickle-cell trait; O99.824 Streptococcus B carrier state complicating childbirth; O76 Abnormality in fetal heart rate and rhythm complicating labor and delivery; O70.0 First degree perineal laceration during delivery; Z3A.39 39 weeks gestation of pregnancy; Z37.0 Single live birth; Z23 Encounter for immunization; D50.9 Iron deficiency anemia, unspecified
CPT/HCPCS: 36415; 85014; 85018; 85027; 86592; 86850; 86900; 86901; 87086; 90471; 90715; J0290; J2590; J3010; J7030; J7040; J7120

== ENCOUNTER 2016-10-16 18:40 | Emergency (ER) | payer MEDICAID | END 2016-10-16 19:45 | disposition left against medical advice (07) | LOC: ED 18:40 | DX: J02.9 Acute pharyngitis, unspecified (principal); R51 Headache; R07.9 Chest pain, unspecified; Z53.21 Procedure and treatment not carried out due to patient leaving prior to being seen by health care provider ==

== ENCOUNTER 2017-03-24 16:27 | Emergency (ER) | payer MEDICAID, OTHER ==
[2017-03-24 16:39] VITALS: BP 118/71
--- NOTE | 2017-03-24 18:09 | Emergency Department Report ---
HPI - General Chief Complaint: Dental/Oral Time Seen by Provider: 03/24/17 18:03 - HPI HPI: The patient is a 22-year-old female who presents to ED complaining of 5/10 pain in the left side of his mouth x 5 days . Patient states that the pain started 5 days ago and has increased in severity over the last 2-3 days. The pain is exacerbated by eating and opening of the mouth. Patient states that it radiates towards ear. Patient describes a as a throbbing, pressure-like sensation. Patient states otherwise well and has no other complaints. Patient has had no fevers and no chills. No chest pain, no shortness of breath. No abdominal pain. No shortness of breath or recent trauma to the face. ED Past Medical Hx - Past Medical History Previous Medical History?: No Hx Hypertension: No Hx Congestive Heart Failure: No Hx Diabetes: No Hx Deep Vein Thrombosis: No Hx Renal Disease: No Hx Sickle Cell Disease: No Hx Seizures: No Hx Asthma: No Hx COPD: No Hx HIV: No - Surgical History Past Surgical History?: No - Social History Smoking Status: Never Smoker Substance Use Type: None - Medications Home Medications: Home Medications Medication Instructions Recorded Confirmed Last Taken Type Caplet 1 tab PO DAILY 01/19/07/29/16 3 Days Ago History ~07/26/16 Ferrous Sulfate [Feosol 325 MG tab] 325 mg PO BID #90 tablet 07/29/16 Unknown Rx Amoxicillin [Amoxicillin TAB] 875 mg PO BID #20 tablet 03/24/17 Unknown Rx Ibuprofen [Motrin 800 MG tab] 800 mg PO Q8HR PRN #30 tablet 03/24/17 Unknown Rx ED Review of Systems ROS: Stated complaint: TOOTHACHE Other details as noted in HPI Constitutional: denies: chills, fever Eyes: denies: eye pain, eye discharge, vision change ENT: dental pain. denies: ear pain, throat pain Respiratory: denies: cough, shortness of breath, wheezing Cardiovascular: denies: chest pain, palpitations Endocrine: no symptoms reported Gastrointestinal: denies: abdominal pain, nausea, diarrhea Genitourinary: denies: urgency, dysuria, discharge Musculoskeletal: denies: back pain, joint swelling, arthralgia Skin: denies: rash, lesions Neurological: denies: headache, weakness, paresthesias Psychiatric: denies: anxiety, depression Hematological/Lymphatic: denies: easy bleeding, easy bruising Physical Exam - Physical Exam Vital Signs: Vital Signs 03/24/17 16:37 Temperature 99.1 F Pulse Rate 88 Respiratory 18 Rate Blood Pressure 118/71 O2 Sat by Pulse 100 Oximetry Physical Exam: GENERAL: Alert and oriented x3, no apparent distress, Normal Gait, atraumatic. HEAD: Head is normocephalic and a-traumatic. EYES: Extra ocular muscles are intact. Pupils are equal, round, and reactive to light and accommodation. EARS: symetrical, atraumatic, non tender, ear canal clear and moderate cerumen, tympanic membrance non inflamed. gross auditory nml bilaterally. MOUTH:Mouth is well hydrated and without lesions. Tonsils nonerythematous or swollen, Uvula midline, Tongue not elevated. Mucous membranes are moist. Posterior pharynx clear, no exudate or lesions. Patent airways. Dental caries seen to #19. No Gingival enlargement, Nobleeding, NECK: Supple. Non edematous, No lymphadenopathy or thyromegaly. LUNGS: Symetrical with respiration, No wheezing, no rales or crackles, CTAB. HEART: S1, S2 present, regular rate and rhythm without murmur, no rubs, no gallops. Non tender to palpation SKIN: Warm and dry, No lesions, No ulceration or induration present. ED Course Vital Signs 03/24/17 16:37 Temperature 99.1 F Pulse Rate 88 Respiratory 18 Rate Blood Pressure 118/71 O2 Sat by Pulse 100 Oximetry ED Medical Decision Making - Medical Decision Making 22-year-old female who presents with left-sided Facial pain secondary to odontogenic caries ED course: Odontogenic infection versus ear infection. Based upon history and physical examination, pain is a result of an infection of tooth number 19 and that the pain Pt feels on the right side of his face and towards the ear is referred pain from this infectious process. Pt has no evidence of acute impending airway compromise. At this point, patient will be discharged home on some antibiotics and pain trial, she will do well with an outpatient course of antibiotics. Follow up with the Dental Clinic as referred Vital signs are normal patient is in no acute distress. Pt had an effect uneventful ED stay Critical care attestation.: If time is entered above; I have spent that time in minutes in the direct care of this critically ill patient, excluding procedure time. ED Disposition Clinical Impression: Dental caries, Toothache Disposition: DC-01 TO HOME OR SELFCARE Is pt being admited?: No Does the pt Need Aspirin: No Condition: Stable Instructions: Toothache (ED), Dental Caries (ED) Prescriptions: Amoxicillin [Amoxicillin TAB] 875 mg PO BID #20 tablet Ibuprofen [Motrin 800 MG tab] 800 mg PO Q8HR PRN #30 tablet PRN Reason: Pain Referrals: PRIMARY CARE,MD [Primary Care Provider] - 3-5 Days [facility] [Outside] - 3-5 Days [facility] [Outside] - 3-5 Days Forms: Accompanied Note, Work/School Release Form(ED) Time of Disposition: 18:12
== END 2017-03-24 19:02 | disposition home or self-care (01) ==
LOC: ED 16:27
DX: K02.9 Dental caries, unspecified (principal)
CPT/HCPCS: 99282

== ENCOUNTER 2017-04-27 16:01 | Emergency (ER) | payer OTHER ==
[2017-04-27 16:32] VITALS: BP 118/59
[2017-04-27 17:22] LABS: Hematocrit 35.3 % (30.3-42.9); Hemoglobin 11.4 gm/dl (10.1-14.3); Mean Corpuscular HGB Conc 32 % (30-34); Mean Corpuscular Volume 73 fl (79-97); Platelet Count 272 K/mm3 (140-440); Red Blood Count 4.86 M/mm3 (3.65-5.03); Red Cell Distribution Width 19.8 % (13.2-15.2)
[2017-04-27 17:25] LABS: BUN/Creatinine Ratio 4; Blood Urea Nitrogen 3 mg/dL (7-17); Calcium 8.9 mg/dL (8.4-10.2); Hemolysis Index 0
[2017-04-27 17:57] LABS: Mean Corpuscular Hemoglobin 24 pg (28-32)
--- NOTE | 2017-04-27 19:48 | Ultrasound Report ---
FINAL REPORT EXAM: US OB < = 14 WEEKS FETUS HISTORY: vaginal bleed with COMPARISONS: None. FINDINGS: Transabdominal grayscale, color Doppler and M-mode first-trimester ultrasound Single living intrauterine with recorded cardiac activity of 168 beats per minute and crown-rump length of approximately 4.9 cm. Estimated gestational age is 12 weeks 1 day with delivery date of 11/08/2017. A perigestational hemorrhage is suggested involving less than 50 percent of the gestational sac surface area. The ovaries contain functional cysts measuring up to 2 cm and overall measure 3.3 x 1.8 x 3 cm on the right and 3.8 x 1.8 x 3.7 cm on the left. IMPRESSION: Single living intrauterine with estimated gestational age of 12 weeks 1 day and delivery date of 11/08/2017. A perigestational hemorrhage measuring up to 2 cm involves less than 50 percent of the gestational sac surface area.
[2017-04-27 23:48] LABS: Bacteria,Urine 3+ /HPF (Negative); Bilirubin,Urine NEG (Negative); Blood,Urine NEG (Negative); Color,Urine Yellow (Yellow); Mucus,Urine FEW /HPF; Nitrite,Urine POS (Negative); Urobilinogen,Urine < 2.0 mg/dL (<2.0)
[2017-04-27 23:50] LABS: WBC,Urine > 182.0 /HPF (0.0-6.0)
--- NOTE | 2017-04-28 03:09 | Emergency Department Report ---
ED Female HPI - General Chief complaint: Vaginal Bleeding Stated complaint: VAGINAL BLEEDING Time Seen by Provider: 04/28/17 02:37 Source: patient Mode of arrival: Ambulatory Limitations: No Limitations - History of Present Illness Initial comments: 22-year-old female past medical history presents with complaint of intermittent lower abdominal crampiness and pain for several days. Patient also complains of some malaise and possible dysuria. Patient awake alert and oriented 3. States she has also had some intermittent nausea for the last few days. Also states she has had some intermittent vaginal bleeding for the last few days. States she passed some clots earlier yesterday which is why she decided to come to the emergency department. Patient denies chest pain shortness of breath palpitations. Denies any flank pain. Patient is fully lucid and cooperative and conversant. Patient states she is able to tolerate some fluids. LMP 02/10 MD Complaint: vaginal bleeding, pelvic pain Onset/Timin -: days(s) Severity: mild Quality: cramping Consistency: intermittent Are you Now?: Yes Last Menstrual Period: 01/25/17 EDC: 11/01/17 - Related Data Home Medications Medication Instructions Recorded Confirmed Last Taken Caplet 1 tab PO DAILY 01/20/16 07/29/16 3 Days Ago ~07/26/16 Previous Rx's Medication Instructions Recorded Last Taken Type Ferrous Sulfate [Feosol 325 MG tab] 325 mg PO BID #90 tablet 07/29/16 Unknown Rx Amoxicillin [Amoxicillin TAB] 875 mg PO BID #20 tablet 03/24/17 Unknown Rx Ibuprofen [Motrin 800 MG tab] 800 mg PO Q8HR PRN #30 tablet 03/24/17 Unknown Rx Acetaminophen [Acetaminophen TAB] 500 mg PO Q6HR PRN #30 tablet 04/28/17 Unknown Rx Nitrofurantoin Monohyd/M-Cryst 100 mg PO BID #14 capsule 04/28/17 Unknown Rx [Macrobid 100 mg Capsule] Ondansetron [Zofran Odt] 4 mg PO Q8HR PRN #20 tab.rapdis 04/28/17 Unknown Rx 21/Iron Fu/Folic Acid 1 each PO QDAY #30 tablet 04/28/17 Unknown Rx [ Complete Caplet] Allergies Allergy/AdvReac Type Severity Reaction Status Date / Time No Known Allergies Allergy Verified 03/24/17 16:37 ED Review of Systems ROS: Stated complaint: VAGINAL BLEEDING Other details as noted in HPI Constitutional: denies: chills, fever Eyes: denies: eye pain, eye discharge, vision change ENT: denies: ear pain, throat pain Respiratory: denies: cough, shortness of breath, wheezing Cardiovascular: denies: chest pain, palpitations Endocrine: no symptoms reported Gastrointestinal: denies: abdominal pain, nausea, diarrhea Genitourinary: as per HPI. denies: urgency, dysuria, discharge Musculoskeletal: denies: back pain, joint swelling, arthralgia Skin: denies: rash, lesions Neurological: denies: headache, weakness, paresthesias Psychiatric: denies: anxiety, depression Hematological/Lymphatic: denies: easy bleeding, easy bruising ED Past Medical Hx - Past Medical History Hx Hypertension: No Hx Congestive Heart Failure: No Hx Diabetes: No Hx Deep Vein Thrombosis: No Hx Renal Disease: No Hx Sickle Cell Disease: No Hx Seizures: No Hx Asthma: No Hx COPD: No Hx HIV: No - Social History Smoking Status: Never Smoker Substance Use Type: None - Medications Home Medications: Home Medications Medication Instructions Recorded Confirmed Last Taken Type Caplet 1 tab PO DAILY 01/20/16 07/29/16 3 Days Ago History ~07/26/16 Ferrous Sulfate [Feosol 325 MG tab] 325 mg PO BID #90 tablet 07/29/16 Unknown Rx Amoxicillin [Amoxicillin TAB] 875 mg PO BID #20 tablet 03/24/17 Unknown Rx Ibuprofen [Motrin 800 MG tab] 800 mg PO Q8HR PRN #30 tablet 03/24/17 Unknown Rx Acetaminophen [Acetaminophen TAB] 500 mg PO Q6HR PRN #30 tablet 04/28/17 Unknown Rx Nitrofurantoin Monohyd/M-Cryst 100 mg PO BID #14 capsule 04/28/17 Unknown Rx [Macrobid 100 mg Capsule] Ondansetron [Zofran Odt] 4 mg PO Q8HR PRN #20 tab.rapdis 04/28/17 Unknown Rx 21/Iron Fu/Folic Acid 1 each PO QDAY #30 tablet 04/28/17 Unknown Rx [ Complete Caplet] ED Physical Exam - General Limitations: No Limitations General appearance: alert, in no apparent distress - Head Head exam: Present: atraumatic, normocephalic - Eye Eye exam: Present: normal appearance, PERRL, EOMI - ENT ENT exam: Present: mucous membranes moist - Neck Neck exam: Present: normal inspection - Respiratory Respiratory exam: Present: normal lung sounds bilaterally. Absent: respiratory distress - Cardiovascular Cardiovascular Exam: Present: regular rate, normal rhythm. Absent: systolic murmur, diastolic murmur, rubs, gallop - GI/Abdominal GI/Abdominal exam: Present: soft, normal bowel sounds - External exam: Present: normal external exam Speculum exam: Present: normal speculum exam (some white discharge no blood in vaginal vault on exam) Bi-manual exam: Present: normal bi-manual exam - Extremities Exam Extremities exam: Present: normal inspection - Back Exam Back exam: Present: normal inspection - Neurological Exam Neurological exam: Present: alert, oriented X3 - Psychiatric Psychiatric exam: Present: normal affect, normal mood - Skin Skin exam: Present: warm, dry, intact, normal color. Absent: rash ED Course Vital Signs 04/27/17 16:27 Temperature 98.3 F Pulse Rate 74 Respiratory 18 Rate Blood Pressure 118/59 O2 Sat by Pulse 99 Oximetry ED Medical Decision Making - Lab Data Result diagrams: 04/27/17 16:39 04/27/17 16:39 - Medical Decision Making A/P: UTI, threatened miscarriage, , nausea and vomiting, bacterial vaginosis 1-case discussed with Dr. Dhaliwal instructed me to discuss case with [facility]. I discussed case with nurse practitioner Óscar who works directly with Dr. Brown. Labs vital signs and ultrasound reviewed. As per nurse christi Cantrell patient can follow-up in office will place patient empirically on Macrobid, when necessary Zofran, Pyridium, when necessary Tylenol. 2-type and screen B+, ultrasound shows IUP. I informed the patient that she has a leann-sacral bleed which may increase her risk of miscarriage. Currently patient has a live IUP approximately 12 weeks gestation. I advised the patient following up within the next 48-72 hours with her ENGINE INSTALLER as advised. Patient stated that she would do so. 3-vital signs stable for discharge. Patient tolerating by mouth fluid and food without difficulty Critical care attestation.: If time is entered above; I have spent that time in minutes in the direct care of this critically ill patient, excluding procedure time. ED Disposition Clinical Impression: Urinary tract infection Qualifiers: Urinary tract infection type: acute cystitis Hematuria presence: without hematuria Qualified Code(s): N30.00 - Acute cystitis without hematuria Qualifiers: Weeks of gestation: 12 weeks Qualified Code(s): Z3A.12 - 12 weeks gestation of Disposition: TO HOME OR SELFCARE Is pt being admited?: No Does the pt Need Aspirin: No Condition: Stable Instructions: (ED), Morning Sickness (ED), Threatened Miscarriage (ED ), Bacterial Vaginosis (ED), Urinary Tract Infection in Women (ED) Prescriptions: Acetaminophen [Acetaminophen TAB] 500 mg PO Q6HR PRN #30 tablet PRN Reason: Fever Nitrofurantoin Monohyd/M-Cryst [Macrobid 100 mg Capsule] 100 mg PO BID #14 capsule Ondansetron [Zofran Odt] 4 mg PO Q8HR PRN #20 tab.rapdis PRN Reason: Nausea 21/Iron Fu/Folic Acid [ Complete Caplet] 1 each PO QDAY #30 tablet Referrals: [facility] [Provider Group] - 3-5 Days Time of Disposition: 06:03
[2017-04-28] MEDS ORDERED: cefTRIAXone 1 GM in NACL 0.9% 20 ML IV ONE (04:34)
[2017-04-28] MEDS ORDERED: ZOFRAN IV ONE (04:34)
[2017-04-28] MEDS ORDERED: NACL 0.9% 1000 ML 1,000 ML IV ONE (04:34)
[2017-04-28] MEDS ORDERED: ROCEPHIN 500 MG in NACL 0.9% 50 ML IV ONE (04:59)
[2017-04-28] MEDS ORDERED: ROCEPHIN/NS 1 GM/50 ML 1 GM/50 ML BAG IV ONE (05:00)
[2017-04-28] MEDS ORDERED: ROCEPHIN ONE (05:05)
== END 2017-04-28 06:30 | disposition home or self-care (01) ==
LOC: ED 16:01
DX: O23.11 Infections of bladder in pregnancy, first trimester (principal); N30.00 Acute cystitis without hematuria; Z3A.12 12 weeks gestation of pregnancy
CPT/HCPCS: 36415; 76801; 80048; 81001; 84702; 85027; 86850; 86900; 86901; 87076; 87086; 87186; 87210; 87591; 96365; 96375; 99284; J0696; J2405; J7030

== ENCOUNTER 2017-08-27 14:46 | Outpatient (CLI) | payer OTHER ==
[2017-08-27] MEDS ORDERED: ZOFRAN IV ONE (15:40)
[2017-08-27] MEDS ORDERED: LACTATED RINGERS 1,000 ML IV ONE (15:40)
[2017-08-27] MEDS ORDERED: LACTATED RINGERS 1,000 ML IV SCH (16:00)
[2017-08-27 16:25] LABS: Basophils % (Auto) 0.1 % (0.0-1.8); Eosinophils % (Auto) 0.1 % (0.0-4.3); Hematocrit 25.5 % (30.3-42.9); Hemoglobin 8.4 gm/dl (10.1-14.3); Lymphocytes # (Auto) 0.7 K/mm3 (1.2-5.4); Lymphocytes % (Auto) 6.3 % (13.4-35.0); Mean Corpuscular HGB Conc 33 % (30-34); Mean Corpuscular Volume 71 fl (79-97); Monocytes # (Auto) 0.6 K/mm3 (0.0-0.8); Monocytes % (Auto) 5.1 % (0.0-7.3); Platelet Count 230 K/mm3 (140-440); Red Blood Count 3.58 M/mm3 (3.65-5.03); Red Cell Distribution Width 15.9 % (13.2-15.2)
[2017-08-27 16:50] LABS: Mean Corpuscular Hemoglobin 23 pg (28-32)
[2017-08-27 16:56] LABS: Alanine Aminotransferase 9 units/L (7-56); Albumin 3.2 g/dL (3.9-5); BUN/Creatinine Ratio 10; Blood Urea Nitrogen 6 mg/dL (7-17); Calcium 8.4 mg/dL (8.4-10.2); Hemolysis Index 0
[2017-08-27] MEDS ORDERED: TYLENOL PO ONE (18:06)
[2017-08-27 18:08] LABS: Bacteria,Urine 1+ /HPF (Negative); Bilirubin,Urine NEG (Negative); Blood,Urine NEG (Negative); Color,Urine Yellow (Yellow); Mucus,Urine FEW /HPF; Protein,Urine <15 mg/dL mg/dL (Negative); Urobilinogen,Urine < 2.0 mg/dL (<2.0)
[2017-08-27] MEDS ORDERED: PHENERGAN PR ONE (18:45)
[2017-08-27 19:42] VITALS: BP 100/46
== END 2017-08-27 22:22 | disposition home or self-care (01) ==
LOC: TRG 14:46
PROVIDERS: ATTEND Obstetrics & Gynecology
DX: O47.03 False labor before 37 completed weeks of gestation, third trimester (principal); Z3A.28 28 weeks gestation of pregnancy
CPT/HCPCS: 36415; 59025; 80053; 81001; 85025; 96360; 96361; 96374; J2405; J7120

== ENCOUNTER 2017-11-03 18:34 | Inpatient (IN) | payer OTHER ==
[2017-11-03] MEDS ORDERED: SUBLIMAZE IV PRN (19:20)
[2017-11-03] MEDS ORDERED: STADOL IV PRN (19:37)
[2017-11-03] MEDS ORDERED: MINERAL OIL PO PRN (19:37)
[2017-11-03] MEDS ORDERED: NUBAIN IV PRN (19:37)
[2017-11-03] MEDS ORDERED: ePHEDrine SULFATE IV PRN (19:37)
[2017-11-03] MEDS ORDERED: ZOFRAN IV PRN (19:37)
[2017-11-03] MEDS ORDERED: XYLOCAINE 2% INFILTRATI ONE (19:37)
[2017-11-03] MEDS ORDERED: NARCAN 0.4 MG/1 ML IV PRN (19:37)
[2017-11-03] MEDS ORDERED: BRETHINE IVP PRN (19:37)
[2017-11-03] MEDS ORDERED: BRETHINE SUB-Q PRN (19:37)
[2017-11-03 20:00] LABS: Hematocrit 24.2 % (30.3-42.9); Hemoglobin 7.6 gm/dl (10.1-14.3); Mean Corpuscular HGB Conc 31 % (30-34); Platelet Count 227 K/mm3 (140-440); Red Blood Count 3.57 M/mm3 (3.65-5.03); Red Cell Distribution Width 19.2 % (13.2-15.2)
[2017-11-03] MEDS ORDERED: PITOCin/NS 20 UNIT/1000ML DRIP 20 UNITS/1,000 ML BAG IV SCH (20:00)
[2017-11-03] MEDS ORDERED: LACTATED RINGERS 1,000 ML IV SCH ×2 (20:00)
[2017-11-03] MEDS ORDERED: AMPICILLIN/NS 1 GM/50 ML 1 GM/50 ML BAG IV SCH (20:00)
[2017-11-03] MEDS ORDERED: POLYCILLIN/NS 2 GM/100 ML 2 GM/100 ML BAG IV ONE (20:00)
[2017-11-03 20:03] LABS: Mean Corpuscular Hemoglobin 21 pg (28-32); Mean Corpuscular Volume 68 fl (79-97)
--- NOTE | 2017-11-03 20:03 | History and Physical Report ---
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 of genital herpes: no Partner hx. of genital herpes: no Hx of STD: none Active Medications (reviewed today): FERROUS SULFATE 325 (65 FE) MG ORAL TABLET (FERROUS SULFATE) 1 po BID Current Allergies (reviewed today): No known allergies Past Medical History: Reviewed history from 12/19/2015 and no changes required: Negative Past Medical History Past Surgical History: Reviewed history from 12/19/2015 and no changes required: negative Risk Factors: Smoked Tobacco Use: Never smoker Smokeless Tobacco Use: Never Passive smoke exposure: no Drug use: no HIV high-risk behavior: low risk Alcohol use: no Seatbelt use: 100 % Past History Past Medical History: no pertinent history Past Surgical History: no surgical history 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 History: denies: abnormal PAP smear, chlamydia, gonorrhea, hepatitis B, hepatitis C, herpes, HIV, syphilis, trichomonas - Obstetrical History Expected Date of Delivery: 11/15/17 Actual Gestation: 38 Week(s) 2 Day(s) : 3 Para: 1 Hx # Term Pregnancies: 1 Induced : 1 #1 year: (EAB) #2 Infant Gender: Female year: Birthweight: 7.44 kg Method of Delivery: Vaginal (VAVD) Gestational age at delivery: 39 Medications and Allergies Allergies Allergy/AdvReac Type Severity Reaction Status Date / Time No Known Allergies Allergy Verified 08/27/17 15:36 Home Medications Medication Instructions Recorded Confirmed Last Taken Type No Known Home Medications [No 08/27/17 08/27/17 Unknown History Reported Home Medications] Active Meds: Active Medications Butorphanol Tartrate (Stadol) 2 mg IV Q2H PRN PRN Reason: Pain , Severe (7-10) Ephedrine Sulfate (Ephedrine Sulfate) 10 mg IV Q2M PRN PRN Reason: Hypotension Fentanyl (Sublimaze) 100 mcg IV Q2H PRN PRN Reason: Labor Pain Ampicillin Sodium (Polycillin/Ns 2 Gm/100 Ml) 2 gm in 100 mls @ 100 mls/hr IV ONCE ONE Stop: 11/03/17 20:59 Ampicillin Sodium (Ampicillin/Ns 1 Gm/50 Ml) 1 gm in 50 mls @ 100 mls/hr IV Q4H MAYRA Lactated Ringer's (Lactated Ringers) 1,000 mls @ 125 mls/hr IV DIRECT MAYRA Oxytocin/Sodium Chloride (Pitocin/Ns 20 Unit/1000ml Drip) 20 units in 1,000 mls @ 0 mls/hr IV DIRECT MAYRA Lactated Ringer's (Lactated Ringers) 1,000 mls @ 125 mls/hr IV DIRECT MAYRA Oxytocin/Sodium Chloride (Pitocin/Ns 20 Unit/1000ml Drip) 20 units in 1,000 mls @ 125 mls/hr IV DIRECT MAYRA Mineral Oil (Mineral Oil) 30 ml PO QHS PRN PRN Reason: Constipation Nalbuphine HCl (Nubain) 10 mg IV Q2H PRN PRN Reason: Pain, Moderate (4-6) Naloxone HCl (Narcan 0.4 Mg/1 Ml) 0.1 mg IV Q2MIN PRN PRN Reason: Res Rate </= 8 or 02 SAT < 92% Ondansetron HCl (Zofran) 4 mg IV Q8H PRN PRN Reason: Nausea And Vomiting Terbutaline Sulfate (Brethine) 0.25 mg SUB-Q ONCE PRN PRN Reason: Hyperstimulation/Hypertonicity Terbutaline Sulfate (Brethine) 0.25 mg IVP ONCE PRN PRN Reason: Hyperstimulation/Hypertonicity Review of Systems All systems: negative Genitourinary: leakage of fluid, contractions - Vital Signs Vital signs: Vital Signs Temp Pulse Resp BP 95.9 F L 84 16 134/71 11/03/17 19:27 11/03/17 19:27 11/03/17 19:27 11/03/17 19:27 Temp Pulse Resp BP Pulse Ox 95.9 F L 75 16 134/71 100 11/03/17 19:27 11/03/17 19:56 11/03/17 19:27 11/03/17 19:32 11/03/17 19:56 - Physical Exam Breasts: Positive: deferred Cardiovascular: Regular rate Lungs: Positive: Normal air movement Abdomen: Negative: tenderness Extremities: Positive: normal. Negative: tenderness, edema - Obstetrical Cervical Dilatation: 5 (per RN, vtx by bedside US performed by me) Results All other labs normal. Assessment and Plan Start Ampicillin Anticipate Vaginal delivery Epidural - Patient Problems (1) 38 weeks gestation of Current Visit: Yes Status: Acute (2) Group B Streptococcus carrier state affecting Onset Date: ~06/26/16 Current Visit: No Status: Acute (3) Spontaneous rupture of membranes Onset Date: ~07/28/16 Current Visit: No Status: Acute
[2017-11-03] MEDS ORDERED: NARCAN 2 MG/2 ML IV PRN (21:25)
[2017-11-03] MEDS: ePHEDrine SULFATE IV PRN ×3 (21:55→22:16)
[2017-11-03] MEDS ORDERED: fentaNYL-BUPIV 2 MCG/ML-0.125% 200 MCG/100 ML BAG EPIDURAL SCH (22:00)
--- NOTE | 2017-11-03 22:19 | Progress Note ---
Assessment and Plan IVF bolus given, O2 place, Ephedrine given, Dr. Bob came to room and gave more ephedrine FHT's cat 2 Continue current management - Patient Problems (1) 38 weeks gestation of Current Visit: Yes Status: Acute (2) Group B Streptococcus carrier state affecting Onset Date: ~06/26/16 Current Visit: No Status: Acute (3) Spontaneous rupture of membranes Onset Date: ~07/28/16 Current Visit: No Status: Acute Subjective - Subjective Date of service: 11/03/17 Principal diagnosis: IUP@ 38 weeks, SROM labor Interval history: Called to for FHT's undetectable, she recently had epidural placed and BP was low Objective - Vital Signs Vital Signs: Vital Signs - 12hr 11/03/17 11/03/17 11/03/17 19:27 19:31 19:32 Temperature 95.9 F L Pulse Rate 84 82 114 H Respiratory 16 Rate Blood Pressure 134/71 Blood Pressure 134/71 [Right] O2 Sat by Pulse 100 Oximetry 11/03/17 11/03/17 11/03/17 19:35 19:36 19:41 Temperature Pulse Rate 75 85 90 Respiratory Rate Blood Pressure Blood Pressure [Right] O2 Sat by Pulse 93 85 95 Oximetry 11/03/17 11/03/17 11/03/17 19:46 19:51 19:56 Temperature Pulse Rate 85 78 75 Respiratory Rate Blood Pressure Blood Pressure [Right] O2 Sat by Pulse 100 99 100 Oximetry 11/03/17 11/03/17 11/03/17 20:01 20:17 20:20 Temperature Pulse Rate 79 93 H Respiratory 18 Rate Blood Pressure Blood Pressure [Right] O2 Sat by Pulse 99 100 Oximetry 11/03/17 11/03/17 11/03/17 20:22 20:29 20:33 Temperature Pulse Rate 79 91 H 91 H Respiratory Rate Blood Pressure Blood Pressure [Right] O2 Sat by Pulse 99 99 79 L Oximetry 11/03/17 11/03/17 11/03/17 20:34 20:39 20:40 Temperature Pulse Rate 90 85 81 Respiratory Rate Blood Pressure Blood Pressure [Right] O2 Sat by Pulse 99 100 93 Oximetry 11/03/17 11/03/17 11/03/17 20:44 20:47 20:49 Temperature Pulse Rate 83 80 91 H Respiratory Rate Blood Pressure Blood Pressure [Right] O2 Sat by Pulse 98 90 98 Oximetry 11/03/17 11/03/17 11/03/17 20:54 20:55 20:59 Temperature Pulse Rate 92 H 79 93 H Respiratory Rate Blood Pressure Blood Pressure [Right] O2 Sat by Pulse 98 77 L 96 Oximetry 11/03/17 11/03/17 11/03/17 21:00 21:04 21:06 Temperature Pulse Rate 95 H 86 80 Respiratory Rate Blood Pressure Blood Pressure [Right] O2 Sat by Pulse 82 L 100 81 L Oximetry 11/03/17 11/03/17 11/03/17 21:09 21:14 21:19 Temperature Pulse Rate 106 H 107 H 88 Respiratory Rate Blood Pressure Blood Pressure [Right] O2 Sat by Pulse 99 100 100 Oximetry 11/03/17 11/03/17 11/03/17 21:34 21:35 21:37 Temperature Pulse Rate 110 H 99 H 93 H Respiratory Rate Blood Pressure 139/62 Blood Pressure [Right] O2 Sat by Pulse 94 93 Oximetry 11/03/17 11/03/17 11/03/17 21:39 21:41 21:43 Temperature Pulse Rate 91 H 77 96 H Respiratory Rate Blood Pressure 110/56 135/64 128/56 Blood Pressure [Right] O2 Sat by Pulse 98 Oximetry 11/03/17 11/03/17 11/03/17 21:44 21:45 21:47 Temperature Pulse Rate 90 108 H 93 H Respiratory Rate Blood Pressure 100/66 Blood Pressure [Right] O2 Sat by Pulse 99 75 L Oximetry 11/03/17 11/03/17 11/03/17 21:49 21:54 21:59 Temperature Pulse Rate 96 H 115 H 101 H Respiratory Rate Blood Pressure Blood Pressure [Right] O2 Sat by Pulse 100 97 100 Oximetry 11/03/17 11/03/17 11/03/17 22:00 22:03 22:04 Temperature Pulse Rate 104 H 98 H 101 H Respiratory Rate Blood Pressure 83/44 Blood Pressure [Right] O2 Sat by Pulse 86 100 Oximetry 11/03/17 11/03/17 11/03/17 22:05 22:09 22:11 Temperature Pulse Rate 90 86 63 Respiratory Rate Blood Pressure 79/42 104/56 Blood Pressure [Right] O2 Sat by Pulse 100 Oximetry 11/03/17 11/03/17 11/03/17 22:14 22:15 22:17 Temperature Pulse Rate 62 76 69 Respiratory Rate Blood Pressure 115/58 104/55 119/62 Blood Pressure [Right] O2 Sat by Pulse 100 Oximetry 11/03/17 22:19 Temperature Pulse Rate 73 Respiratory Rate Blood Pressure 109/52 Blood Pressure [Right] O2 Sat by Pulse Oximetry - Exam Narrative Exam: Patient somewhat lethargic but appropriately responsive Cardiovascular: Regular rate Lungs: Normal air movement Abdomen: Present: soft, other (obese). Absent: tenderness Vulva: both: normal FHR: category 2 FHR comments: ISE and IUPC placed without difficulty , FHT's immediately noted at 140's Cervical Dilatation: 6.5 Cervical Effacement Percentage: 80 station: 0 Uterine Contraction Pattern: Regular - Labs Labs: Abnormal Labs 11/03/17 19:31 WBC 12.0 H RBC 3.57 L Hgb 7.6 L Hct 24.2 L MCV 68 L MCH 21 L RDW 19.2 H Laboratory Results - last 24 hr 11/03/17 11/03/17 19:31 19:31 WBC 12.0 H RBC 3.57 L Hgb 7.6 L Hct 24.2 L MCV 68 L MCH 21 L MCHC 31 RDW 19.2 H Plt Count 227 Blood Type B POSITIVE Antibody Screen Negative
[2017-11-04] MEDS ORDERED: XYLOCAINE 2% INFILTRATI ONE (01:04)
[2017-11-04] MEDS ORDERED: METHERGINE IM ONE ×2 (01:21→02:04)
[2017-11-04] MEDS ORDERED: HEMABATE IM ONE ×2 (01:22→02:04)
[2017-11-04] MEDS ORDERED: CYTOTEC ONE (01:22)
[2017-11-04] MEDS: PITOCin/NS 20 UNIT/1000ML DRIP 20 UNITS/1,000 ML BAG IV SCH ×2 (01:30→02:39)
[2017-11-04] MEDS ORDERED: CYTOTEC PR ONE (02:04)
[2017-11-04] MEDS ORDERED: REGLAN ONE (02:14)
--- NOTE | 2017-11-04 02:19 | Procedure Note ---
OB Delivery Note - Delivery Date of Delivery: 11/04/17 Surgeon: SHER SHAW Estimated blood loss: other (600mL) - Vaginal Delivery presentation: vertex Delivery position: OP Intrapartum events: mult.variable deceleratio, hemorrhage (Uterine atony immediately noted after delivery of placenta, atony resolved with manual massage, Methergine IM 0.2mg, Hemabate 250mcg IM and Cytotec 600mcg OH and Pitocin 20u IV bolus. Bladder drained ~150mL clear urine) Delivery induction: none Delivery monitor: external FHT, external uterine, internal FHT, internal uterine Route of delivery: Delivery placenta: spontaneous Delivery cord: nuchal cord (x1) Episiotomy: midline (Performed d/t recurrent severe variable decelerations) Delivery laceration: 2nd degree Delivery repair: vicryl (3-0, usual repair) Anesthesia: intravenous, epidural - A at 1 minute: 8 at 5 minutes: 9 Gender: Male (8#5oz)
[2017-11-04] MEDS ORDERED: PITOCin/NS 20 UNIT/1000ML DRIP 20 UNITS/1,000 ML BAG IV SCH (03:27)
[2017-11-04] MEDS ORDERED: SODIUM CHLORIDE FLUSH SYRINGE 10 ML IV PRN (03:27)
[2017-11-04] MEDS ORDERED: MILK OF MAGNESIA PO PRN (03:27)
[2017-11-04] MEDS ORDERED: DULCOLAX PR PRN (03:27)
[2017-11-04] MEDS ORDERED: LANSINOH TP PRN (03:27)
[2017-11-04] MEDS ORDERED: BENADRYL PO PRN (03:27)
[2017-11-04] MEDS ORDERED: TYLENOL PO PRN (03:27)
[2017-11-04] MEDS ORDERED: ZOFRAN IV PRN (03:27)
[2017-11-04] MEDS ORDERED: PHENERGAN PO PRN (03:27)
[2017-11-04] MEDS ORDERED: TUCKS PAD TP PRN (03:27)
[2017-11-04] MEDS ORDERED: PHENERGAN PR PRN (03:27)
[2017-11-04] MEDS: MOTRIN PO SCH ×3 (04:49→22:12)
[2017-11-04 08:17] LABS: Hematocrit 23.7 % (30.3-42.9); Hemoglobin 7.5 gm/dl (10.1-14.3)
[2017-11-04] MEDS: METHERGINE PO SCH ×3 (08:35→22:12)
[2017-11-04 16:06] LABS: Hematocrit 22.4 % (30.3-42.9); Hemoglobin 6.9 gm/dl (10.1-14.3)
[2017-11-04] MEDS ORDERED: NACL 0.9% 500 ML 500 ML IV SCH (16:55)
[2017-11-04] MEDS ORDERED: BENADRYL PO SCH (16:56)
[2017-11-04] MEDS ORDERED: TYLENOL PO SCH (16:56)
--- NOTE | 2017-11-04 17:02 | Event Note ---
Date: 11/04/17 (12hr H&H 10/16) Pt denies feeling weak, does describe HAM, pulse >100 Consulted with Will transfuse 1 unit PRC RN notified Orders in EMR.
[2017-11-04] MEDS: FEOSOL PO SCH (22:12)
[2017-11-05] MEDS: MOTRIN PO SCH ×2 (04:48→12:05)
--- NOTE | 2017-11-05 05:34 | Event Note ---
Date: 11/05/17 Called RN and inquired about if pt had transfusion. She states and has documented that pt was waiting to have her mother give her permission for the transfusion. She has made several calls to mother and mother has not returned her calls. At this time pt is refusing transfusion for the above reason of not having spoke with her mother. This was noted.
[2017-11-05] MEDS ORDERED: BOOSTRIX IM ONE (06:00)
--- NOTE | 2017-11-05 07:04 | Event Note ---
Date: 11/05/17 (pt agrees to receive one unit of PRC) pt states now she is ready to receive the unit of blood. She asks to go home later today. will d/c after post H&H is resulted
--- NOTE | 2017-11-05 07:09 | Discharge Summary ---
Providers - Providers Date of Admission: 11/03/17 19:23 Date of discharge: 11/05/17 (pt desires d/c today) Attending physician: MANSOOR SPICER 11/04/17 03:27 Consult to College Counselor [CONS] Routine Reason For Exam: assistance with , SNS Primary care physician: MANSOOR SPICER Hospitalization Reason for admission: active labor Delivery: Episiotomy: none Laceration: none Other procedures: none complications: transfusion Discharge diagnosis: IUP at term delivered [place] baby: male Hospital course: uncomplicated vaginal delivery PPH > 600ml Pt. anemic on admission. Transfused 1 unit PRC Pt resting No c/o voiced. Agrees this AM to receive one unit PRC. VSS FF below umb Lochia mod Perineum intact 12hr H&H 10/16 chronic anemia drop r/t blood loss from delivery. Stable s/p vag del P: Will transfuse blood and then d/c after post H&H is resulted. D/C instructions given RTO 4 weeks PP care and 1 week circumcision Condition at discharge: Good Disposition: DC-01 TO HOME OR SELFCARE - Discharge Diagnoses (1) Spontaneous vaginal delivery Status: Acute Comment: RTO 4 weeks PP care (2) Anemia Status: Acute Qualifiers: Anemia type: iron deficiency Iron deficiency anemia type: inadequate dietary iron intake Qualified Code(s): D50.8 - Other iron deficiency anemias Comment: pt receiving one unit PRC; d/c with rx po iron Plan - Discharge Medications Prescriptions: Lidocain2.5%/Prilocai2.5% [Emla] 5 gm TP ONCE #1 tube - Provider Discharge Summary Activity: routine, no sex for 6 weeks, no heavy lifting 4 weeks, no strenuous exercise Diet: routine Instructions: routine Additional instructions: [] Smoking cessation referral if applicable(refer to patient education folder for contact #) [] Refer to [facility] Booklet Call your doctor immediately for: * Fever > 100.5 * Heavy vaginal bleeding ( >1 pad per hour) * Severe persistent headache * Shortness of breath * Reddened, hot, painful area to leg or breast * Drainage or odor from incision. * Keep incision clean and dry at all times and follow doctor's instructions regarding bathing/showering - Follow up plan Follow up: MANSOOR SPICER MD [Primary Care Provider] - 12/07/17 (Congratulations! Please call [phone] to schedule your visit in 4 weeks and your son's circumcision in 1 week. Bring the EMLA cream with you to his visit. Do NOT use at home. Take medications as prescribed. Call with concerns. )
[2017-11-05] MEDS ORDERED: NACL 0.9% 500 ML 500 ML IV SCH (08:00)
[2017-11-05] MEDS: FEOSOL PO SCH (11:15)
[2017-11-05 15:24] LABS: Hematocrit 26.4 % (30.3-42.9); Hemoglobin 8.3 gm/dl (10.1-14.3)
[2017-11-05 17:55] VITALS: BP 121/81
== END 2017-11-05 17:48 | disposition home or self-care (01) | DRG 774 ==
LOC: TRG 18:34 → LD 19:23 → OB 11-04 03:24
PROVIDERS: ADMIT Obstetrics & Gynecology; ATTEND Obstetrics & Gynecology
PROC: 10E0XZZ Delivery of Products of Conception, External Approach (ICD-10-PCS; principal; 2017-11-04)
PROC: 0W8NXZZ Division of Female Perineum, External Approach (ICD-10-PCS; 2017-11-04)
PROC: 3E0R3BZ Introduction of Anesthetic Agent into Spinal Canal, Percutaneous Approach (ICD-10-PCS; 2017-11-04)
PROC: 00HU33Z Insertion of Infusion Device into Spinal Canal, Percutaneous Approach (ICD-10-PCS; 2017-11-04)
PROC: 30233N1 Transfusion of Nonautologous Red Blood Cells into Peripheral Vein, Percutaneous Approach (ICD-10-PCS; 2017-11-05)
DX: O99.824 Streptococcus B carrier state complicating childbirth (principal); O72.1 Other immediate postpartum hemorrhage; Z3A.38 38 weeks gestation of pregnancy; Z37.0 Single live birth; O76 Abnormality in fetal heart rate and rhythm complicating labor and delivery; O69.81X0 Labor and delivery complicated by cord around neck, without compression, not applicable or unspecified; O70.1 Second degree perineal laceration during delivery; O99.02 Anemia complicating childbirth; D64.9 Anemia, unspecified
CPT/HCPCS: 36415; 85014; 85018; 85027; 86592; 86850; 86900; 86901; 86920; 99211; G0463; J0290; J2210; J2590; J2765; J3010; J7040; J7120; P9016

== ENCOUNTER 2018-06-10 16:30 | Emergency (ER) | payer SELFPAY ==
--- NOTE | 2018-06-10 16:51 | Emergency Department Report ---
Blank Doc - Documentation Documentation: 23 y o female presents with left upper quad abd pain worse with laying down, denies f/n/v/d/ dysuria ua, upt non tender abdomen reevaluate
[2018-06-10 18:42] LABS: Bilirubin,Urine NEG (Negative); Blood,Urine NEG (Negative); Color,Urine Yellow (Yellow); Urobilinogen,Urine < 2.0 mg/dL (<2.0)
[2018-06-10 18:49] LABS: HCG Qualitative,Urine Negative (Negative); WBC,Urine < 1.0 /HPF (0.0-6.0)
[2018-06-10 20:08] LABS: Alanine Aminotransferase 32 units/L (7-56); Albumin 3.9 g/dL (3.9-5); BUN/Creatinine Ratio 6; Blood Urea Nitrogen 5 mg/dL (7-17); Calcium 8.9 mg/dL (8.4-10.2); Hemolysis Index 17
[2018-06-10 20:09] LABS: Bilirubin,Direct < 0.2 mg/dL (0-0.2)
[2018-06-10 20:18] LABS: Basophils % (Auto) 0.4 % (0.0-1.8); Hematocrit 31.8 % (30.3-42.9); Lymphocytes # (Auto) 3.2 K/mm3 (1.2-5.4); Lymphocytes % (Auto) 19.7 % (13.4-35.0); Mean Corpuscular HGB Conc 32 % (30-34); Mean Corpuscular Volume 71 fl (79-97); Platelet Count 274 K/mm3 (140-440); Red Cell Distribution Width 16.8 % (13.2-15.2)
[2018-06-10 20:19] LABS: Basophils # (Auto) 0.1 K/mm3 (0.0-0.1); Eosinophils % (Auto) 0.1 % (0.0-4.3); Monocytes # (Auto) 1.8 K/mm3 (0.0-0.8); Monocytes % (Auto) 11.1 % (0.0-7.3)
[2018-06-10] MEDS ORDERED: NACL 0.9% 1000 ML 1,000 ML IV ONE (21:15)
[2018-06-10] MEDS ORDERED: TORADOL IV ONE (21:15)
--- NOTE | 2018-06-10 21:31 | Ultrasound Report ---
FINAL REPORT PROCEDURE: US ABDOMEN COMPLETE TECHNIQUE: Real-time sonography in multiple planes of the abdomen was performed with image documenta tion. CPT 86657 HISTORY: abd pain COMPARISON: No prior studies are available for comparison. FINDINGS: L liver demonstrates an ill-defined isoechoic area in the posterior left lobe measuring about 3.6 x 4 .1 x 4.6 centimeters which corresponds to the patient's symptomatology. Otherwise liver, spleen, visu alized pancreatic head and body and bilateral kidneys demonstrate normal echotexture. Portal vein is patent with antegrade flow. Common duct is 1.6 millimeters in caliber. Right kidney measures 10.8 x 5 .4 x 6.4 centimeters and left kidney measures 9.9 x 5.2 x 5.7 centimeters without calculi or hydronep hrosis. Gallbladder is well distended with normal outlines are normal wall thickness without calculi or pericholecystic collections. Proximal abdominal aorta is 1.9 centimeters in diameter. IMPRESSION: An ill-defined area involving the left lobe liver most likely represents normal hepatic parenchyma. H owever this corresponds to patient's site of symptomatology. A CT scan may be recommended for further evaluation..
--- NOTE | 2018-06-10 21:53 | Emergency Department Report ---
ED Abdominal Pain HPI - General Chief Complaint: Abdominal Pain Stated Complaint: HEADACHE/SORE THROAT/STOMACH PAIN Time Seen by Provider: 06/10/18 16:44 Source: patient Mode of arrival: Ambulatory Limitations: No Limitations - History of Present Illness Initial Comments: This is a 23-year-old female nontoxic, well nourished in appearance, no acute signs of distress presents to the ED with c/o of left upper abdominal pain 1 day. Patient is also c/o of frontal sinus pain and sore throat. Patient denies any cough or other URI. Stated has some rhinorrhea and nasal congestion. Patient denies any nausea or vomiting. Patient describes abdominal pain as cramping and aching with level of 3/10. Patient denies any radiation of pain. Denies any trauma. Patient denies chest pain, short of breath, fever, chills, headache, stiff neck, numbness or tingling. Patient denies any diarrhea or constipation. Patient denies any recent travels. Patient denies any allergies or significant PMH. MD Complaint: abdominal pain -: days(s) (1) Location: [facility] Radiation: none Migration to: no migration Severity: mild Severity scale (0 -10): 3 Quality: aching Consistency: constant Improves With: nothing Worsens With: nothing Associated Symptoms: denies other symptoms. denies: nausea, vomiting, diarrhea, fever, chills, constipation, dysuria, hematemesis, hematochezia, melena, hematuria, anorexia, syncope - Related Data Previous Rx's Medication Instructions Recorded Last Taken Type Lidocain2.5%/Prilocai2.5% [Emla] 5 gm TP ONCE #1 tube 11/04/17 Unknown Rx Docusate Sodium [Colace] 100 mg PO BID PRN #60 capsule 11/05/17 Unknown Rx Ferrous Sulfate [Feosol 325 MG tab] 325 mg PO BID #60 tablet 11/05/17 Unknown Rx Ibuprofen [Motrin 800 MG tab] 800 mg PO TID PRN #30 tablet 11/05/17 Unknown Rx Lidocain2.5%/Prilocai2.5% [Emla] 5 gm TP PRN #1 tube 11/05/17 Unknown Rx Ciprofloxacin HCl [Ciprofloxacin 500 mg PO Q12HR #20 tab 06/11/18 Unknown Rx TAB] Fluconazole [Diflucan TAB] 150 mg PO ONCE #1 tablet 06/11/18 Unknown Rx Ibuprofen [Motrin] 600 mg PO Q8H PRN #20 tablet 06/11/18 Unknown Rx Ondansetron [Zofran Odt] 4 mg PO Q8HR PRN #20 tab.rapdis 06/11/18 Unknown Rx Allergies Allergy/AdvReac Type Severity Reaction Status Date / Time No Known Allergies Allergy Verified 06/10/18 23:20 ED Review of Systems ROS: Stated complaint: HEADACHE/SORE THROAT/STOMACH PAIN Other details as noted in HPI Constitutional: denies: chills, fever Eyes: denies: eye pain, eye discharge, vision change ENT: throat pain. denies: ear pain Respiratory: denies: cough, shortness of breath, wheezing Cardiovascular: denies: chest pain, palpitations Endocrine: no symptoms reported Gastrointestinal: abdominal pain. denies: nausea, vomiting, diarrhea Genitourinary: denies: urgency, dysuria, discharge Musculoskeletal: denies: back pain, joint swelling, arthralgia Skin: denies: rash, lesions Neurological: denies: headache, weakness, paresthesias Psychiatric: denies: anxiety, depression Hematological/Lymphatic: denies: easy bleeding, easy bruising ED Past Medical Hx - Past Medical History Hx Hypertension: No Hx Congestive Heart Failure: No Hx Diabetes: No Hx Deep Vein Thrombosis: No Hx Renal Disease: No Hx Sickle Cell Disease: No Hx Seizures: No Hx Asthma: No Hx COPD: No Hx HIV: No - Social History Smoking Status: Never Smoker Substance Use Type: None - Medications Home Medications: Home Medications Medication Instructions Recorded Confirmed Last Taken Type Lidocain2.5%/Prilocai2.5% [Emla] 5 gm TP ONCE #1 tube 11/04/17 Unknown Rx Docusate Sodium [Colace] 100 mg PO BID PRN #60 capsule 11/05/17 Unknown Rx Ferrous Sulfate [Feosol 325 MG tab] 325 mg PO BID #60 tablet 11/05/17 Unknown Rx Ibuprofen [Motrin 800 MG tab] 800 mg PO TID PRN #30 tablet 11/05/17 Unknown Rx Lidocain2.5%/Prilocai2.5% [Emla] 5 gm TP PRN #1 tube 11/05/17 Unknown Rx Ciprofloxacin HCl [Ciprofloxacin 500 mg PO Q12HR #20 tab 06/11/18 Unknown Rx TAB] Fluconazole [Diflucan TAB] 150 mg PO ONCE #1 tablet 06/11/18 Unknown Rx Ibuprofen [Motrin] 600 mg PO Q8H PRN #20 tablet 06/11/18 Unknown Rx Ondansetron [Zofran Odt] 4 mg PO Q8HR PRN #20 tab.rapdis 06/11/18 Unknown Rx ED Physical Exam - General Limitations: No Limitations General appearance: alert, in no apparent distress - Head Head exam: Present: atraumatic, normocephalic - Expanded ENT Exam Expanded Ear exam: Present: normal external inspection Mouth exam: Present: normal external inspection. Absent: drooling, trismus, muffled voice Throat exam: Positive: tonsillar erythema, other (uvula midline.). Negative: tonsillomegaly, tonsillar exudate, R peritonsillar mass, L peritonsillar mass - Neck Neck exam: Present: normal inspection, full ROM. Absent: tenderness, meningismus, lymphadenopathy - Respiratory Respiratory exam: Present: normal lung sounds bilaterally. Absent: respiratory distress, wheezes, rales, rhonchi, stridor, chest wall tenderness, accessory muscle use, decreased breath sounds, prolonged expiratory - Cardiovascular Cardiovascular Exam: Present: regular rate, normal rhythm, tachycardia, normal heart sounds. Absent: bradycardia, irregular rhythm, systolic murmur, diastolic murmur, rubs, gallop - GI/Abdominal GI/Abdominal exam: Present: soft, normal bowel sounds. Absent: distended, tenderness, guarding, rebound, rigid, diminished bowel sounds, hyperactive bowel sounds, hypoactive bowel sounds - Expanded GI/Abdominal Exam Expanded GI/Abdominal exam: Absent: psoas sign, Rhodes's sign, Rovsing's sign, tenderness at Mcburney's Point, ascites - Extremities Exam Extremities exam: Present: normal inspection, full ROM, normal capillary refill. Absent: tenderness - Back Exam Back exam: Present: normal inspection, full ROM - Neurological Exam Neurological exam: Present: alert, oriented X3 - Psychiatric Psychiatric exam: Present: normal affect, normal mood - Other Other exam information: Positive frontal tenderness. ED Course Vital Signs 06/10/18 06/10/18 06/11/18 16:44 22:02 00:24 Temperature 98.8 F 100.5 F H 98.9 F Pulse Rate 118 H 116 H 100 H Respiratory 18 19 17 Rate Blood Pressure 97/73 Blood Pressure 105/66 [Right] O2 Sat by Pulse 99 99 100 Oximetry - Reevaluation(s) Reevaluation #1: 06/10/18 22:03 Patient is speaking in full sentences with no signs of distress noted. ED Medical Decision Making - Lab Data Result diagrams: 06/10/18 19:34 06/10/18 19:34 - Medical Decision Making This is a 23-year-old female that presents with pyelonephritis, pharyngitis and sinusitis. Patient is stable and was examined by me. There is no abdominal tenderness. Patient was consulted with Stephen Araujo which he agrees to plan of care and ER as well as discharge instructions. Blood cultures has been ordered and patient was instructed to have primary care doctor to call in About 3-5 days for results. Myself and Dr. Valdivia believe patient does not have bacteremia. Vital signs are stable prior to discharge. Negative signs of symptoms of appendicitis. Sepsis protocol initiated. Labs obtained. UA obtained. US/CT/and Xray of abdomen obtained and dictated by the radiologist. Patient is notified of the report with no questions noted by the patient. Patient received medical treatment and 2G Rocephine in the ED which patient stated symptoms has resolved and subsided. A by mouth challenge has been obtained and patient tolerated well with no nausea vomiting. Patient was notified of strict precautions of appendicitis symptoms and to return to the ED if symptoms occurs as soon as possible. Patient was also instructed to Follow- up with a primary care doctor in 2 days or if symptoms worsen and continue r eturn to emergency room as soon as possible. At time of discharge, the patient does not seem toxic or ill in appearance. No acute signs of distress noted. Patient agrees to discharge treatment plan of care. No further questions noted by the patient. Critical care attestation.: If time is entered above; I have spent that time in minutes in the direct care of this critically ill patient, excluding procedure time. ED Disposition Clinical Impression: Pyelonephritis Pharyngitis Qualifiers: Pharyngitis/tonsillitis etiology: unspecified etiology Qualified Code(s): J02.9 - Acute pharyngitis, unspecified Sinusitis Qualifiers: Sinusitis location: frontal Chronicity: acute Recurrence: non-recurrent Qualified Code(s): J01.10 - Acute frontal sinusitis, unspecified Disposition: DC-01 TO HOME OR SELFCARE Is pt being admited?: No Does the pt Need Aspirin: No Condition: Stable Instructions: Acute Pyelonephritis (ED) Additional Instructions: Follow-up with a primary care doctor in 2 days or if symptoms worsen and continue return to emergency room as soon as possible. Please have your primary care doctor call for results with blood cultures. Increase hydration as much as possible. Prescriptions: Ciprofloxacin HCl [Ciprofloxacin TAB] 500 mg PO Q12HR #20 tab Fluconazole [Diflucan TAB] 150 mg PO ONCE #1 tablet Ibuprofen [Motrin] 600 mg PO Q8H PRN #20 tablet PRN Reason: Pain/Fever Ondansetron [Zofran Odt] 4 mg PO Q8HR PRN #20 tab.rapdis PRN Reason: Nausea [facility]: [facility] MD DANILO [Primary Care Provider] - 3-5 Days PRIMARY CAREMD [Referring] - 3-5 Days JENNIFER PATRICK MD [Staff Physician] - 3-5 Days [facility] [Outside] - 3-5 Days [facility] [Outside] - 3-5 Days Forms: Work/School Release Form(ED)
[2018-06-10] MEDS ORDERED: NACL 0.9% 1000 ML IV ONE (22:07)
[2018-06-10] MEDS ORDERED: TYLENOL PO ONE (22:08)
[2018-06-10] MEDS ORDERED: TYLENOL ONE (22:09)
--- NOTE | 2018-06-10 22:19 | XRay Report ---
FINAL REPORT PROCEDURE: XR ABD SERIES W CXR 1V TECHNIQUE: Abdominal series complete, including supine and upright AP views of the abdomen and front al chest. HISTORY: abd pain COMPARISON: No prior studies are available for comparison. FINDINGS: Heart: Normal. Mediastinum/Vessels: Normal. Lungs/Pleural space: Normal. Bowel gas pattern: A few air-fluid levels are noted in nondistended small bowel loops in the mid abdo men. There is no small bowel or large bowel distension. Mild degree residual stool is noted in the re ctosigmoid.. Masses or calcifications: None. Bony structures: No acute osseous abnormality. Other: No free intraperitoneal air. IMPRESSION: Nonspecific intestinal gas pattern..
--- NOTE | 2018-06-11 02:25 | Cat Scan Report ---
FINAL REPORT PROCEDURE: CT ABDOMEN PELVIS W CON TECHNIQUE: Computerized axial tomography of the abdomen and pelvis was performed after the IV inject ion of iodinated nonionic contrast. HISTORY: abd pain COMPARISON: No prior studies are available for comparison. FINDINGS: Visualized lower thorax: No significant abnormality. Liver: Normal size and attenuation. Spleen: Normal size and attenuation. Gallbladder and biliary system: Normal. Pancreas: Normal. Adrenals: Normal. Kidneys: There are multifocal areas of decreased enhancement of the renal cortex bilaterally, greater on the left the with perinephric induration, greater on the left, consistent with bilateral multifoc al pyelonephritis. There is no mass, cyst, stone, hydronephrosis the or intra renal or perinephric ab scess.. GI tract: There is no bowel obstruction, colitis or enteritis. The appendix is normal.. Lymph nodes and mesentery: Normal. Vasculature: Normal. Bladder: Normal. Reproductive organs: Uterus is unremarkable. There is a 2 centimeter complex cyst in the left ovary.. Peritoneum: There is no ascites or free air, abscess or adenopathy.. Musculoskeletal structures: No significant abnormality. Other: None. IMPRESSION: Bilateral pyelonephritis.
[2018-06-11] MEDS ORDERED: ROCEPHIN/NS 2 GM/100 ML 2 GM/100 ML BAG IV ONE (02:34)
[2018-06-11 03:48] VITALS: BP 121/75
== END 2018-06-11 04:20 | disposition home or self-care (01) ==
LOC: ED 16:30
DX: J01.10 Acute frontal sinusitis, unspecified (principal); N12 Tubulo-interstitial nephritis, not specified as acute or chronic
CPT/HCPCS: 36415; 74022; 74177; 76700; 80048; 80076; 81001; 81025; 82140; 83690; 85025; 87040; 87086; 96365; 96375; 99285; J0696; J1885; J7030; Q9967

== ENCOUNTER 2018-08-31 19:02 | Emergency (ER) | payer OTHER ==
[2018-08-31] MEDS ORDERED: TYLENOL PO ONE (20:09)
[2018-08-31] MEDS ORDERED: IBUPROFEN PO ONE (23:59)
[2018-09-01] MEDS ORDERED: ROCEPHIN/NS 1 GM/50 ML 1 GM/50 ML BAG IV ONE (00:10)
[2018-09-01] MEDS ORDERED: NACL 0.9% 1000 ML 1,000 ML IV ONE (00:11)
--- NOTE | 2018-09-01 00:51 | Emergency Department Report ---
ED Abdominal Pain HPI - General Chief Complaint: Chest Pain Stated Complaint: CHEST, HEAD, AND ABDOMINAL PAIN Time Seen by Provider: 09/01/18 00:10 Source: patient Mode of arrival: Ambulatory Limitations: No Limitations - History of Present Illness Initial Comments: Patient is a A0 23-year-old -[place] female with a history of recurrent urinary tract infections presents to the ED with complaint of acute onset persistent severe right flank pain for the last 1 week, worse in the last 2 days with nausea, feels a little 102F, chills and generalized weakness. Patient states that the pain in the right flank and radiates to the lower back a nd to the lower abdomen. Patient denies dizziness, chest pain, shortness of breath, diarrhea, vomiting, dysuria, urinary frequency and urgency, vaginal bleeding or cough, nasal and sinus congestion, sore throat or vaginal discharge. Patient states that she has had multiple recurrent urinary tract infections and feels that these symptoms are similar to those that she had when she had the last UTI. MD Complaint: abdominal pain, flank pain (right flank pain, nausea, chills, fever) -: Gradual, week(s) (1) Location: suprapubic, R flank Radiation: suprapubic, R flank Migration to: no migration Severity: moderate Severity scale (0 -10): 5 Quality: cramping, sharp Consistency: intermittent Improves With: medication Worsens With: nothing Associated Symptoms: nausea, fever, chills. denies: vomiting, diarrhea, constipation, dysuria, hematemesis, hematochezia, melena, hematuria, anorexia, syncope Treatments Prior to Arrival: NSAIDs - Related Data LMP Date: 08/26/18 LMP (females 10-50): last week Previous Rx's Medication Instructions Recorded Last Taken Type Lidocain2.5%/Prilocai2.5% [Emla] 5 gm TP ONCE #1 tube 11/04/17 Unknown Rx Docusate Sodium [Colace] 100 mg PO BID PRN #60 capsule 11/05/17 Unknown Rx Ferrous Sulfate [Feosol 325 MG tab] 325 mg PO BID #60 tablet 11/05/17 Unknown Rx Ibuprofen [Motrin 800 MG tab] 800 mg PO TID PRN #30 tablet 11/05/17 Unknown Rx Lidocain2.5%/Prilocai2.5% [Emla] 5 gm TP PRN #1 tube 11/05/17 Unknown Rx Ciprofloxacin HCl [Ciprofloxacin 500 mg PO Q12HR #20 tab 06/11/18 Unknown Rx TAB] Fluconazole [Diflucan TAB] 150 mg PO ONCE #1 tablet 06/11/18 Unknown Rx Ibuprofen [Motrin] 600 mg PO Q8H PRN #20 tablet 06/11/18 Unknown Rx Ondansetron [Zofran Odt] 4 mg PO Q8HR PRN #20 tab.rapdis 06/11/18 Unknown Rx Acetaminophen/Codeine [Tylenol 1 tab PO Q6H PRN #12 tab 09/01/18 Unknown Rx /Codeine # 3 tab] Ketorolac [Toradol] 10 mg PO Q8H PRN #20 tablet 09/01/18 Unknown Rx Ondansetron [Zofran Odt] 4 mg PO Q6HR #15 tab.rapdis 09/01/18 Unknown Rx levoFLOXacin [Levaquin TAB] 500 mg PO QDAY #10 tablet 09/01/18 Unknown Rx Allergies Allergy/AdvReac Type Severity Reaction Status Date / Time No Known Allergies Allergy Verified 06/10/18 23:20 ED Review of Systems ROS: Stated complaint: CHEST, HEAD, AND ABDOMINAL PAIN Other details as noted in HPI Constitutional: no symptoms reported, see HPI, chills, fever, malaise Eyes: as per HPI. denies: eye pain, eye discharge, vision change ENT: as per HPI. denies: ear pain, throat pain, dental pain, hearing loss, epistaxis Respiratory: no symptoms reported, see HPI. denies: cough, shortness of breath, SOB with exertion, SOB at rest, wheezing Cardiovascular: as per HPI. denies: chest pain, palpitations, dyspnea on exertion, syncope, paroxysmal nocturnal dyspnea Endocrine: no symptoms reported, see HPI. denies: excessive sweating, flushing, intolerance to cold, increased hunger, increased thirst, increased urine Gastrointestinal: as per HPI, abdominal pain, nausea. denies: vomiting, diarrhea, constipation, hematemesis, melena, hematochezia Genitourinary: as per HPI. denies: urgency, dysuria, frequency, hematuria, discharge, abnormal menses, dyspareunia Musculoskeletal: as per HPI, back pain, arthralgia, myalgia. denies: joint swelling Skin: as per HPI. denies: rash, lesions, change in color, change in hair/nails Neurological: as per HPI. denies: headache, weakness, paresthesias, confusion, abnormal gait, vertigo Psychiatric: as per HPI Hematological/Lymphatic: as per HPI ED Past Medical Hx - Past Medical History Previous Medical History?: No Hx Hypertension: No Hx Congestive Heart Failure: No Hx Diabetes: No Hx Deep Vein Thrombosis: No Hx Renal Disease: No Hx Sickle Cell Disease: No Hx Seizures: No Hx Asthma: No Hx COPD: No Hx HIV: No - Surgical History Past Surgical History?: No - Social History Smoking Status: Never Smoker Substance Use Type: None - Medications Home Medications: Home Medications Medication Instructions Recorded Confirmed Last Taken Type Lidocain2.5%/Prilocai2.5% [Emla] 5 gm TP ONCE #1 tube 11/04/17 Unknown Rx Docusate Sodium [Colace] 100 mg PO BID PRN #60 capsule 11/05/17 Unknown Rx Ferrous Sulfate [Feosol 325 MG tab] 325 mg PO BID #60 tablet 11/05/17 Unknown Rx Ibuprofen [Motrin 800 MG tab] 800 mg PO TID PRN #30 tablet 11/05/17 Unknown Rx Lidocain2.5%/Prilocai2.5% [Emla] 5 gm TP PRN #1 tube 11/05/17 Unknown Rx Ciprofloxacin HCl [Ciprofloxacin 500 mg PO Q12HR #20 tab 06/11/18 Unknown Rx TAB] Fluconazole [Diflucan TAB] 150 mg PO ONCE #1 tablet 06/11/18 Unknown Rx Ibuprofen [Motrin] 600 mg PO Q8H PRN #20 tablet 06/11/18 Unknown Rx Ondansetron [Zofran Odt] 4 mg PO Q8HR PRN #20 tab.rapdis 06/11/18 Unknown Rx Acetaminophen/Codeine [Tylenol 1 tab PO Q6H PRN #12 tab 09/01/18 Unknown Rx /Codeine # 3 tab] Ketorolac [Toradol] 10 mg PO Q8H PRN #20 tablet 09/01/18 Unknown Rx Ondansetron [Zofran Odt] 4 mg PO Q6HR #15 tab.rapdis 09/01/18 Unknown Rx levoFLOXacin [Levaquin TAB] 500 mg PO QDAY #10 tablet 09/01/18 Unknown Rx ED Physical Exam - General Limitations: No Limitations General appearance: alert, in no apparent distress - Head Head exam: Present: atraumatic, normocephalic, normal inspection - Eye Eye exam: Present: normal appearance, PERRL, EOMI. Absent: scleral icterus, conjunctival injection, periorbital tenderness - ENT ENT exam: Present: normal exam, normal orophraynx, mucous membranes moist, TM's normal bilaterally, normal external ear exam - Neck Neck exam: Present: normal inspection, full ROM. Absent: tenderness, meningismus, lymphadenopathy - Respiratory Respiratory exam: Present: normal lung sounds bilaterally. Absent: respiratory distress, wheezes, rales, rhonchi, chest wall tenderness, accessory muscle use - Cardiovascular Cardiovascular Exam: Present: tachycardia, normal heart sounds - GI/Abdominal GI/Abdominal exam: Present: soft, tenderness (Palpable mild right flank tender ness). Absent: guarding, rebound, hyperactive bowel sounds, hypoactive bowel sounds - Rectal Rectal exam: Present: deferred - Extremities Exam Extremities exam: Present: normal inspection, full ROM, normal capillary refill - Back Exam Back exam: Present: normal inspection, full ROM, tenderness, CVA tenderness (R). Absent: CVA tenderness (L), muscle spasm, paraspinal tenderness, vertebral tenderness - Neurological Exam Neurological exam: Present: alert, oriented X3, CN II-XII intact, normal gait, reflexes normal - Psychiatric Psychiatric exam: Present: normal affect - Skin Skin exam: Present: warm, dry, intact, normal color ED Course Vital Signs 08/31/18 20:07 Temperature 102.9 F H Pulse Rate 118 H Respiratory 18 Rate Blood Pressure 108/70 O2 Sat by Pulse 100 Oximetry ED Medical Decision Making - Lab Data Result diagrams: 09/01/18 00:16 09/01/18 00:16 - Medical Decision Making Patient had presented to the ED with severe right flank pain, urinary frequency and urgency and intermittent fever of 102F. Patient was treated in the ED for fever, labs were drawn and patient also had urinalysis tested. Lab test results were reviewed and showed acute leukocytosis of 14,400, hypokalemia at 3.1 mmol per liter, and the urine showed significant infection characterized by a positive nitrite and moderate white blood cells in the urine. Patient received 1 g Rocephin IV 1 with normal saline 1 L IV bolus fluids. On reevaluation, the patient's pain is well controlled, patient's tachycardia as well as fever have normalized with treatment. Although the patient's tests results point to acute pyelonephritis, patient was treated adequately in the ED and I'll have her to signs were unremarkable with treatment. Patient also had small children in the ED that she could not have been admitted to the hospital as there appeared to be nobody else taken the children. Patient was however discharged home on pain medications including antibiotics, antiemetics as well pain medications and advised to follow-up with her primary care physician in 5-7 days for reevaluation, or return to the ED immediately if symptoms get worse. Patient verbalized understanding and agreed to comply. - Differential Diagnosis Fever, Acute Urinary Tract infection, Acute pyelonephritis Critical care attestation.: If time is entered above; I have spent that time in minutes in the direct care of this critically ill patient, excluding procedure time. ED Disposition Clinical Impression: Acute urinary tract infection, Fever and chills, Acute pyelonephritis, Acute flank pain Disposition: TO HOME OR SELFCARE Is pt being admited?: No Does the pt Need Aspirin: No Condition: Stable Instructions: Acute Pyelonephritis (ED), Urinary Tract Infection in Women (ED), Fever in Adults (ED), Flank Pain (ED) Additional Instructions: Take medications with food and drink plenty of fluids. Follow-up in the [facility] physician or primary care physician in 5-7 days for reevaluation. Return to the emergency Department immediately if symptoms get worse. Prescriptions: levoFLOXacin [Levaquin TAB] 500 mg PO QDAY #10 tablet Ketorolac [Toradol] 10 mg PO Q8H PRN #20 tablet PRN Reason: Pain Acetaminophen/Codeine [Tylenol /Codeine # 3 tab] 1 tab PO Q6H PRN #12 tab PRN Reason: Pain , Severe (7-10) Ondansetron [Zofran Odt] 4 mg PO Q6HR #15 tab.rapdis Referrals: LIZBETH ESTEVES MD [Primary Care Provider] - 3-5 Days Forms: Work/School Release Form(ED) Time of Disposition: 03:22 Print Language: HEBREW
[2018-09-01 00:54] LABS: Basophils % (Auto) 0.3 % (0.0-1.8); Eosinophils % (Auto) 0.1 % (0.0-4.3); Hematocrit 30.1 % (30.3-42.9); Hemoglobin 9.7 gm/dl (10.1-14.3); Lymphocytes # (Auto) 2.4 K/mm3 (1.2-5.4); Lymphocytes % (Auto) 16.4 % (13.4-35.0); Mean Corpuscular HGB Conc 32 % (30-34); Monocytes # (Auto) 1.6 K/mm3 (0.0-0.8); Monocytes % (Auto) 10.8 % (0.0-7.3); Platelet Count 281 K/mm3 (140-440); Red Blood Count 4.36 M/mm3 (3.65-5.03); Red Cell Distribution Width 18.9 % (13.2-15.2)
[2018-09-01 00:59] LABS: Mean Corpuscular Volume 69 fl (79-97)
[2018-09-01] MEDS ORDERED: ROCEPHIN IM ONE (01:07)
[2018-09-01 01:08] LABS: Alanine Aminotransferase 22 units/L (7-56); Albumin 3.9 g/dL (3.9-5); BUN/Creatinine Ratio 7; Blood Urea Nitrogen 6 mg/dL (7-17); Calcium 8.7 mg/dL (8.4-10.2); Hemolysis Index 0
[2018-09-01] MEDS ORDERED: K-DUR PO ONE (01:26)
[2018-09-01 02:48] LABS: HCG Qualitative,Urine Negative (Negative)
[2018-09-01 02:49] LABS: Bacteria,Urine 1+ /HPF (Negative); Bilirubin,Urine NEG (Negative); Blood,Urine MOD (Negative); Color,Urine Amber (Yellow); WBC,Urine > 182.0 /HPF (0.0-6.0)
[2018-09-01 03:23] VITALS: BP 94/52
== END 2018-09-01 03:35 | disposition home or self-care (01) ==
LOC: ED 19:02
DX: N39.0 Urinary tract infection, site not specified (principal); N10 Acute pyelonephritis
CPT/HCPCS: 36415; 80053; 81001; 81025; 83690; 85025; 93005; 93010; 96365; 99283; J0696; J7030

== ENCOUNTER 2019-07-04 15:20 | Outpatient (CLI) | payer MEDICAID, OTHER ==
[2019-07-04 15:49] VITALS: BP 120/60
== END 2019-07-04 16:25 | disposition home or self-care (01) ==
LOC: TRG 15:20
PROVIDERS: ATTEND Obstetrics & Gynecology
DX: O47.03 False labor before 37 completed weeks of gestation, third trimester (principal); Z3A.34 34 weeks gestation of pregnancy
CPT/HCPCS: 59025